=== PATIENT | female | born 1935 | race Caucasian/White ===

== ENCOUNTER 2017-11-21 14:00 | Outpatient (RCR) | payer MEDICARE, OTHER, SELFPAY | END 2017-11-21 23:59 | LOC: PT 14:00 | PROVIDERS: PCP Family Medicine; Visit Provider Family Medicine | DX: I89.0 Lymphedema, not elsewhere classified (principal) | CPT/HCPCS: G8987; G8988; G8989; 97140; 97162 ==

== ENCOUNTER 2017-11-22 19:40 | Outpatient (RCR) | payer MEDICARE, SELFPAY | END 2017-11-22 23:59 | LOC: PT 19:40 | PROVIDERS: Family Provider Family Medicine; PCP Family Medicine; Visit Provider Family Medicine | DX: I89.0 Lymphedema, not elsewhere classified (principal) ==

== ENCOUNTER 2017-12-01 16:36 | Emergency (ER) | payer MEDICARE, OTHER, SELFPAY ==
[2017-12-01 17:01] VITALS: BP 151/67; PULSE 89; RESP 20; TEMP 36.6; O2SAT 95; BMI 35.7
--- NOTE | 2017-12-01 17:52 | HMH.EDUTC ---
[facility] [place] Disposition Clinical Impression: Fracture of trapezium of left wrist Qualifiers: Encounter type: initial encounter Fracture type: closed Fracture alignment: nondisplaced Qualified Code(s): S62.175A - Nondisplaced fracture of trapezium [larger multangular], left wrist, initial encounter for closed fracture Disposition: Home, Self-Care Condition on Discharge: Good Instructions: DI for Wrist Fracture, How To Perform RICE (Rest, Ice, Compress, Elevate), How to Use a Sling, How to Take Care of Your Splint Additional Instructions: * Rest * ice 15-20 mins 3-4 times a day * splint for support and swelling until you see ortho or Dr. Steve. * Elevate as discussed as much as possible to help reduce swelling and therefore, pain * Tylenol and/or aleve for pain Referrals: Dominick Steve MD [Primary Care Provider] - (Call Sunday. Tell him you were in the [facility] Sunday, dx w/ trapzium fracture by Dr. Camarena. Radiologist final report wasn't available at discharge. Placed in orthoglass splint. Prefer not to see Dr. Kong. He and you can decide on someone to follow up with.) Time of Disposition: 19:43 Medical Decision Making Vital Signs: 12/01/17 17:01 Temperature 98 F Temperature Source Temporal Artery Scan Pulse Rate [Brachial] 89 Respiratory Rate 20 Blood Pressure [Right Arm] 151/67 Blood Pressure Mean [Right Arm] 95 Blood Pressure Source [Right Arm] Manual Cuff/ Doppler Blood Pressure Position [Right Arm] Sitting 02 Sat by Pulse Oximetry 95 Oxygen Delivery Method Room Air - Lab Data Lab Results 12/01/17 18:05: Sodium 134 L, Potassium 3.9, Chloride 98, Carbon Dioxide 28, Anion Gap 11.9, BUN 8, Creatinine 0.79, Estimated Creat Clear 62, Estimated GFR > 60, Est GFR ( Amer) > 60, Glucose 127 H, Uric Acid 4.2 Result diagrams: 12/01/17 18:05 Orders (Tests/Meds): ORDERS Category Date Time Status XR wrist LT min 3V Stat Exams 12/01/17 17:59 Taken - Radiology Data #1 Image(s): Wrist (left) Image Reviewed: Yes I reviewed the patient's radiology image, Yes I reviewed the patient's radiology image w/the ED provider trapezium fracture per Dr. Nicol Hughes Inquiry Pt receiving controlled substance: No [facility] [place] HPI - General Stated complaint: Swollen left hand, no accident Time Seen by Provider: 12/01/17 17:52 Mode of Arrival: Wheelchair Source of Information: Patient Limitations: No Limitations Description of Symptoms (Recalled from Triage Doc. by RN): LEFT HAND SWOLLEN WHEN PT WOKE UP HEENT Symptoms (Recalled from RN notes): No Resp Symptoms (Recalled from RN notes): No Skin Symptoms (Recalled from RN notes): No MS Symptoms (Recalled from RN notes): Yes (LEFT HAND) Functional Status (Recalled from RN notes): NA - History of Present Illness Provider Complaint: Here w/ daughter in law c/o left wrist pain and swelling. Woke up with it this morning. No pain last night when she went to bed. No known injury but I am always knocking it on things . Denies hx of gout. No fever, malaise. No improvement w/ aleve. radiating into FA and up into hand. Worse with movement of fingers, especially thumb - Related Data Home Medications Medication Instructions Recorded Confirmed Amlodipine Besylate [Norvasc 5mg 5 mg PO DAILY 12/01/17 12/01/17 tablet] Allergies Allergy/AdvReac Type Severity Reaction Status Date / Time Penicillins [PENICILLINS] Allergy Intermediate I-RASH Verified 12/01/17 17:08 Sulfa (Sulfonamide Allergy Unknown Verified 12/01/17 17:08 Antibiotics) [SULFA (SULFONAMIDE ANTIBIOTICS)] - Worker's Comp Is this a Worker's Comp case?: No [facility] History I have reviewed the patient's past medical history: Yes Medical History: Reports:: Hypertension Denies:: Diabetes Mellitus Type 1, Diabetes Mellitus Type 2 Other Medical History: Reports: Arthritis Laterality Cases: Left: Arthroscopy Hip Other Surgeries: Yes: Other (hip replacement) - *Social
--- NOTE | 2017-12-01 17:59 | ED_ITS ---
[facility] [place] Clinical Impression: Fracture of trapezium of left wrist Qualifiers: Encounter type: initial encounter Fracture type: closed Fracture alignment: nondisplaced Qualified Code(s): S62.175A - Nondisplaced fracture of trapezium [ larger multangular], left wrist, initial encounter for closed fracture Disposition: Home, Self-Care Condition on Discharge: Good Instructions: DI for Wrist Fracture, How To Perform RICE (Rest, Ice, Compress, Elevate), How to Use a Sling, How to Take Care of Your Splint Additional Instructions: * Rest * ice 15-20 mins 3-4 times a day * splint for support and swelling until you see ortho or Dr. Steve. * Elevate as discussed as much as possible to help reduce swelling and therefore , pain * Tylenol and/or aleve for pain Referrals: Dominick Steve MD [Primary Care Provider] - (Call Sunday. Tell him you were in the [facility] Sunday, dx w/ trapzium fracture by Dr. Camarena. Radiologist final report wasn't available at discharge. Placed in orthoglass splint. Prefer not to see Dr. Kong. He and you can decide on someone to follow up with.) Time of Disposition: 19:43 Medical Decision Making Vital Signs: 12/01/17 17:01 Temperature 98 F Temperature Source Temporal Artery Scan Pulse Rate [Brachial] 89 Respiratory Rate 20 Blood Pressure [Right Arm] 151/67 Blood Pressure Mean [Right Arm] 95 Blood Pressure Source [Right Arm] Manual Cuff/ Doppler Blood Pressure Position [Right Arm] Sitting 02 Sat by Pulse Oximetry 95 Oxygen Delivery Method Room Air - Lab Data Lab Results 12/01/17 18:05: Sodium 134 L, Potassium 3.9, Chloride 98, Carbon Dioxide 28, Anion Gap 11.9, BUN 8, Creatinine 0.79, Estimated Creat Clear 62, Estimated GFR > 60, Est GFR ( Amer) > 60, Glucose 127 H, Uric Acid 4.2 Result diagrams: 12/01/17 18:05 Orders (Tests/Meds): ORDERS Category Date Time Status XR wrist LT min 3V Stat Exams 12/01/17 17:59 Taken - Radiology Data #1 Image(s): Wrist (left) Image Reviewed: Yes I reviewed the patient's radiology image, Yes I reviewed the patient's radiology image w/the ED provider trapezium fracture per Dr. Nicol Hughes Inquiry Pt receiving controlled substance: No [facility] [place] - General Stated complaint: Swollen left hand, no accident Time Seen by Provider: 12/01/17 17:52 Mode of Arrival: Wheelchair Source of Information: Patient Limitations: No Limitations Description of Symptoms (Recalled from Triage Doc. by RN): LEFT HAND SWOLLEN WHEN PT WOKE UP HEENT Symptoms (Recalled from RN notes): No Resp Symptoms (Recalled from RN notes): No Skin Symptoms (Recalled from RN notes): No MS Symptoms (Recalled from RN notes): Yes (LEFT HAND) Functional Status (Recalled from RN notes): NA - History of Present Illness Provider Complaint: Here w/ daughter in law c/o left wrist pain and swelling. Woke up with it this morning. No pain last night when she went to bed. No known injury but I am always knocking it on things . Denies hx of gout. No fever, malaise. No improvement w/ aleve. radiating into FA and up into hand. Worse with movement of fingers, especially thumb - Related Data Home Medications Medication Instructions Recorded Confirmed Amlodipine Besylate [Norvasc 5mg 5 mg PO DAILY 12/01/17 12/01/17 tablet] Allergies Allergy/AdvReac Type Severity Reacti
--- NOTE | 2017-12-01 17:59 | XR_ITS ---
XR wrist LT min 3V HISTORY: Left wrist pain ITS.REASON: woke up this morning w/ left wrist swollen/painful ORDERING PHYSICIAN: Radha Tyson PATIENT AGE: 82 years COMPARISON: None FINDINGS: No fracture or dislocation. No lytic or blastic change. There is normal mineralization.. There are mild osteoarthritic changes of the scaphotrapezium joint. There is generalized osteopenia.. There is some cortical irregularity involving the base of the ulnar styloid process of age indeterminate probably nonacute. There is some minimal chondrocalcinosis of the triangular fibrocartilage. IMPRESSION: 1. No definite acute fracture. 2. Osteoarthritic change of the scaphotrapezium joint. 3. If there is suspicion for fracture then CT of the wrist is recommended for further evaluation.
[2017-12-01 18:30] LABS: Anion Gap 11.9 mEq/L (5-15); Blood Urea Nitrogen 8 mg/dL (7-18); Carbon Dioxide 28 mmol/L (21.0-32.0); Chloride 98 mmol/L (98-107); Creatinine Clearance Estimated 62 mL/min (0-300); Creatinine,Serum 0.79 mg/dL (0.55-1.02); Estimated Glomerular Filt Rate > 60 ml/min (>60); GFR (African American) > 60 ML/MIN (>60); Glucose 127 mg/dL (74-106); Potassium 3.9 mmoL/L (3.5-5.1); Sodium 134 mmol/L (136-145); Uric Acid 4.2 mg/dL (2.6-7.2)
== END 2017-12-01 19:48 | disposition home or self-care (01) ==
PROVIDERS: Emergency Provider Nurse Practitioner Family; Family Provider Family Medicine; PCP Family Medicine
DX: S62.175A Nondisplaced fracture of trapezium [larger multangular], left wrist, initial encounter for closed fracture (principal); X58.XXXA Exposure to other specified factors, initial encounter; I10 Essential (primary) hypertension; Z79.899 Other long term (current) drug therapy
CPT/HCPCS: 36415; 73110; 80048; 84550; 99202

== ENCOUNTER 2018-01-05 12:31 | Emergency (ER) | payer MEDICARE, OTHER, SELFPAY ==
[2018-01-05 12:41] VITALS: BP 149/70; PULSE 80; RESP 18; TEMP 36.9; O2SAT 97; BMI 29.5
--- NOTE | 2018-01-05 13:28 | HMH.EDUROGF ---
ED Disposition Clinical Impression: Abnormal vaginal bleeding, Uterine prolapse, Coagulopathy Clinical Impression: (Ruled Out): Hemorrhoids Disposition: Home, Self-Care Condition on Discharge: Fair Instructions: DI for Gastrointestinal Bleeding Additional Instructions: I discussed with the patient and her [id number] that the origin of the bleeding is most likely the anterior vaginal wall secondary to her third-degree prolapse. We discussed the following discharge plan. She verbalized understanding. 1- stop the aspirin. 2- observe for more than 5 pads of vaginal bleeding to return, if she becomes weak or dizzy she will need to return. 3- see Dr Loyd for treatment of prolapse and cancer screening. Referrals: Dominick Steve MD [Primary Care Provider] - - Critical Care Critical Care Time: No Attestation: On 01/05/18, the high probability of a clinically significant, sudden or life threatening deterioration of the following system(s) required my full and direct attention, intervention and personal management. The time I documented below is in addition to time spent performing reported procedures but includes the following listed in this critical care notation. Medical Decision Making - Medical Records Medical records reviewed: Yes: I reviewed the patient's medical records. Vital Signs: 01/05/18 12:41 01/05/18 13:35 01/05/18 13:36 Temperature 98.5 F Temperature Source Oral Pulse Rate [Orthostatic Lying Right Brachial] 103 H Pulse Rate [Orthostatic Sitting Right Brachial] 94 H Pulse Rate [Orthostatic Standing Right Brachial] Pulse Rate [Right Brachial] 80 Respiratory Rate 18 Blood Pressure [Orthostatic Lying Right Arm] 163/73 Blood Pressure [Orthostatic Sitting Right Arm] 166/93 Blood Pressure [Orthostatic Standing Right Arm] Blood Pressure [Right Arm] 149/70 Blood Pressure Mean [Right Arm] 96 Blood Pressure Source [Right Arm] Automatic Cuff Blood Pressure Position [Right Arm] Sitting 02 Sat by Pulse Oximetry 97 Oxygen Delivery Method Room Air 01/05/18 13:37 Temperature Temperature Source Pulse Rate [Orthostatic Lying Right Brachial] Pulse Rate [Orthostatic Sitting Right Brachial] Pulse Rate [Orthostatic Standing Right Brachial] 99 H Pulse Rate [Right Brachial] Respiratory Rate Blood Pressure [Orthostatic Lying Right Arm] Blood Pressure [Orthostatic Sitting Right Arm] Blood Pressure [Orthostatic Standing Right Arm] 168/67 Blood Pressure [Right Arm] Blood Pressure Mean [Right Arm] Blood Pressure Source [Right Arm] Blood Pressure Position [Right Arm] 02 Sat by Pulse Oximetry Oxygen Delivery Method - Lab Data Lab Results 01/05/18 13:28: Stool Occult Blood Negative 01/05/18 13:40: WBC 8.5, RBC 4.52, Hgb 13.5, Hct 41.1, MCV 90.9, MCH 30.0, MCHC 33.0, RDW 13.4, Plt Count 289, MPV 7.3 L, Neut % (Auto) 74.4, Lymph % (Auto) 21.1, [place] % (Auto) 4.2, Eos % (Auto) 0.2, Baso % (Auto) 0.1, Neut # (Auto) 6.4, Lymph # (Auto) 1.8, [place] # (Auto) 0.4, Eos # (Auto) 0.0, Baso # (Auto) 0.0 01/05/18 13:40: PT 10.6, INR 0.98, APTT 27.5 01/05/18 13:40: Sodium 143, Potassium 3.9, Chloride 107, Carbon Dioxide 28, Anion Gap 11.9, BUN 13, Creatinine 0.78, Estimated Creat Clear 49, Estimated GFR 71, Est GFR ( Amer) 85, Glucose 116 H, Calcium 9.5, Total Bilirubin 0.4, AST 24, ALT 24, Alkaline Phosphatase 91, Total Protein 7.6, Albumin 3.7, Globulin 3.9 H, Albumin/Globulin Ratio 0.9 L Result diagrams: 01/05/18 13:40 01/05/18 13:40 - Saul Inquiry Pt receiving controlled substance: No Saul was queried for this patient: No Medical Decision Making Narrative: The labs were within normal limits and Hemoccult was negative. I discussed the labs with the patient and her [id number]. Vision of the bleeding seems to be the anterior vaginal wall due to her third-degree prolapse. Advised to stop the aspirin see Dr. Trotter for a pessary. she lonny
--- NOTE | 2018-01-05 13:32 | ED_ITS ---
ED Disposition Clinical Impression: Abnormal vaginal bleeding, Uterine prolapse, Coagulopathy Clinical Impression: (Ruled Out): Hemorrhoids Disposition: Home, Self-Care Condition on Discharge: Fair Instructions: DI for Gastrointestinal Bleeding Additional Instructions: I discussed with the patient and her [id number] that the origin of the bleeding is most likely the anterior vaginal wall secondary to her third-degree prolapse. We discussed the following discharge plan. She verbalized understanding. 1- stop the aspirin. 2- observe for more than 5 pads of vaginal bleeding to return, if she becomes weak or dizzy she will need to return. 3- see Dr Loyd for treatment of prolapse and cancer screening. Referrals: Dominick Steve MD [Primary Care Provider] - - Critical Care Critical Care Time: No Attestation: On 01/05/18, the high probability of a clinically significant, sudden or life threatening deterioration of the following system(s) required my full and direct attention, intervention and personal management. The time I documented below is in addition to time spent performing reported procedures but includes the following listed in this critical care notation. Medical Decision Making - Medical Records Medical records reviewed: Yes: I reviewed the patient's medical records. Vital Signs: 01/05/18 12:41 01/05/18 13:35 01/05/18 13:36 Temperature 98.5 F Temperature Source Oral Pulse Rate [Orthostatic Lying Right Brachial] 103 H Pulse Rate [Orthostatic Sitting Right Brachial] 94 H Pulse Rate [Orthostatic Standing Right Brachial] Pulse Rate [Right Brachial] 80 Respiratory Rate 18 Blood Pressure [Orthostatic Lying Right Arm] 163/73 Blood Pressure [Orthostatic Sitting Right Arm] 166/93 Blood Pressure [Orthostatic Standing Right Arm] Blood Pressure [Right Arm] 149/70 Blood Pressure Mean [Right Arm] 96 Blood Pressure Source [Right Arm] Automatic Cuff Blood Pressure Position [Right Arm] Sitting 02 Sat by Pulse Oximetry 97 Oxygen Delivery Method Room Air 01/05/18 13:37 Temperature Temperature Source Pulse Rate [Orthostatic Lying Right Brachial] Pulse Rate [Orthostatic Sitting Right Brachial] Pulse Rate [Orthostatic Standing Right Brachial] 99 H Pulse Rate [Right Brachial] Respiratory Rate Blood Pressure [Orthostatic Lying Right Arm] Blood Pressure [Orthostatic Sitting Right Arm] Blood Pressure [Orthostatic Standing Right Arm] 168/67 Blood Pressure [Right Arm] Blood Pressure Mean [Right Arm] Blood Pressure Source [Right Arm] Blood Pressure Position [Right Arm] 02 Sat by Pulse Oximetry Oxygen Delivery Method - Lab Data Lab Results 01/05/18 13:28: Stool Occult Blood Negative 01/05/18 13:40: WBC 8.5, RBC 4.52, Hgb 13.5, Hct 41.1, MCV 90.9, MCH 30.0, MCHC 33.0, RDW 13.4, Plt Count 289, MPV 7.3 L, Neut % (Auto) 74.4, Lymph % (Auto) 21.1, [place] % (Auto) 4.2, Eos % (Auto) 0.2, Baso % (Auto) 0.1, Neut # (Auto) 6.4 , Lymph # (Auto) 1.8, [place] # (Auto) 0.4, Eos # (Auto) 0.0, Baso # (Auto) 0.0 01/05/18 13:40: PT 10.6, INR 0.98, APTT 27.5 01/05/18 13:40: Sodium 143, Potassium 3.9, Chloride 107, Carbon Dioxide 28, Anion Gap 11.9, BUN 13, Creatinine 0.78, Estimated Creat Clear 49, Estimated GFR 71, Est GFR ( Amer) 85, Glucose
[2018-01-05 13:35] VITALS: BP 163/73; PULSE 103
[2018-01-05 13:36] VITALS: BP 166/93; PULSE 94
[2018-01-05 13:37] VITALS: BP 168/67; PULSE 99
[2018-01-05 13:49] LABS: Occult Blood,Stool Negative (Negative)
[2018-01-05 13:53] LABS: Basophils % 0.1 % (0.1-2.0); Eosinophils % 0.2 % (0.1-12.0); Hematocrit 41.1 % (37.0-47.0); Hemoglobin 13.5 g/dL (12.2-16.2); Lymphocytes # 1.8 K/mm3 (0.7-4.5); Lymphocytes % 21.1 K/mm3 (10-50); Mean Corpuscular Volume 90.9 fl (81-99); Mean Platelet Volume 7.3 fl (7.4-10.4); Monocytes # 0.4 K/mm3 (0.1-1.0); Monocytes % 4.2 % (1.7-9.3); Neutrophils # 6.4 K/mm3 (1.8-7.8); Neutrophils % 74.4 % (37.0-80.0); Platelet Count 289 K/mm3 (142-424); Red Blood Count 4.52 M/mm3 (4.20-5.40); Red Cell Distribution Width 13.4 % (11.5-17.5); White Blood Count 8.5 K/mm3 (4.8-10.8)
[2018-01-05 13:58] LABS: Activated Partial Thrombo Time 27.5 seconds (23.6-34.0); INR 0.98 (0.9-1.1); Prothrombin Time 10.6 seconds (9.4-11.8)
[2018-01-05 14:03] LABS: Alanine Aminotransferase 24 U/L (12-78); Albumin Level 3.7 gm/dL (3.4-5.0); Albumin/Globulin Ratio 0.9 (1.1-1.8); Alkaline Phosphatase 91 U/L (46-116); Anion Gap 11.9 mEq/L (5-15); Aspartate Amino Transferase 24 U/L (15-37); Bilirubin,Total 0.4 mg/dL (0.2-1.0); Blood Urea Nitrogen 13 mg/dL (7-18); Calcium 9.5 mg/dL (8.5-10.1); Carbon Dioxide 28 mmol/L (21.0-32.0); Chloride 107 mmol/L (98-107); Creatinine Clearance Estimated 49 mL/min (0-300); Creatinine,Serum 0.78 mg/dL (0.55-1.02); Estimated Glomerular Filt Rate 71 ml/min (>60); GFR (African American) 85 ML/MIN (>60); Globulin 3.9 gm/dl (1.3-3.2); Glucose 116 mg/dL (74-106); Potassium 3.9 mmoL/L (3.5-5.1); Sodium 143 mmol/L (136-145); Total Protein,Serum 7.6 gm/dL (6.4-8.2)
[2018-01-05 14:29] VITALS: BP 144/68; PULSE 80; RESP 20; TEMP 36.8; O2SAT 98
== END 2018-01-05 14:29 | disposition home or self-care (01) ==
PROVIDERS: Emergency Provider Emergency Medicine; Family Provider Family Medicine; PCP Family Medicine
DX: N93.9 Abnormal uterine and vaginal bleeding, unspecified (principal); N81.4 Uterovaginal prolapse, unspecified; D68.9 Coagulation defect, unspecified; I10 Essential (primary) hypertension; Z88.0 Allergy status to penicillin; Z88.2 Allergy status to sulfonamides; Z96.642 Presence of left artificial hip joint
CPT/HCPCS: 80053; 82272; 85025; 85610; 85730; 99284; G0328

== ENCOUNTER → 2018-01-11 14:54 | Outpatient (CLI) | payer MEDICARE, OTHER, SELFPAY ==
--- NOTE | 2018-01-11 15:01 | CT_ITS ---
CT wrist LT wo con HISTORY: Left wrist pain ITS.REASON: LEFT WRIST PAIN ORDERING PHYSICIAN: Dominick Steve MD PATIENT AGE: 82 years COMPARISON: None FINDINGS: There is diffuse osteopenia. The patient was not able to be positioned optimally nasopharyngeal was not able to be in the isocenter without other body parts. No obvious fracture or bony destructive process evident. No fracture or dislocation IMPRESSION: Limited exam. No obvious fracture
== END ==
PROVIDERS: Family Provider Family Medicine; PCP Family Medicine; Visit Provider Family Medicine
DX: M25.532 Pain in left wrist (principal)
CPT/HCPCS: 73200

== ENCOUNTER 2018-01-17 08:48 | Outpatient (RCR) | payer MEDICARE, OTHER, SELFPAY ==
--- NOTE | 2018-01-17 10:10 | HMH.PTOPEV ---
Rehab Outpatient Evaluation Rehab OP Evaluation Start: 01/17/18 09:56 Freq: Status: Active Protocol: Document 01/17/18 09:57 RMMARILUL (Rec: 01/17/18 10:10 RMARSHALL [id number]) Electronically Signed By Jovanny Aguilar OT 01/17/18 09:57 Outpatient Therapy Subjective History Subjective History Pt is an 82 year old female who is seen this date for initial evaluation to left wrist. Pt reports ~ 3 weeks ago she woke up one morning with pain in her left wrist. Pt does not recall a specific injury to left wrist that would have caused the pain. Pt claims her pain has interrupted her normal everyday routines. Pt does demonstrate with slight decreased AROM/Strength at left wrist. Pt is right hand dominant. Pt's celery stripper strength was also declined slightly at left hand. Pt will continue to be seen in order to address these deficits. Chief Complaint Pain Stiff Decreased Structural Steel Fitter Strength Symptom Type Ache Throb Sharp Symptoms Relieved By Nothing Symptoms Aggravated By Physical Activity Twisting Lifting Prior Functional Limitations None Current Functional Limitations Reaching Lifting Housework Dressing Symptom Description Intermittent Activity Dependent Level of pain today (0-10) 2 Pain scale - at its best (0-10) 1 Pain scale - at its worst (0-10) 8 Wrist/Hand Eval Wrist Range of Motion Wrist Limitations of Range of Motion Soft Tissue Tightness Pain Wrist Extension Active Range of Motion ( 58 degrees) Wrist Flexion Active Range of Motion ( 40 degrees) Wrist Radial Deviation Active Range of 18 Motion (degrees) Wrist Ulnar Deviation Active Range of 18 Motion (degrees) Wrist Manual Muscle Testing Right Wrist Strength Reason Not Measured WFL Left Wrist Extension Strength Grade 4- Good- Wrist Flexion Strength
== END 2018-01-17 08:49 | disposition home or self-care (01) ==
LOC: OT 08:48
PROVIDERS: Family Provider Family Medicine; PCP Family Medicine; Visit Provider Family Medicine
DX: M25.532 Pain in left wrist (principal)
CPT/HCPCS: 97035; 97140; 97165

== ENCOUNTER 2018-06-25 10:00 | Outpatient (RCR) | payer MEDICARE, OTHER, SELFPAY ==
--- NOTE | 2018-04-26 10:40 | HMH.PTOPWND ---
Rehab Outpt Wound Evaluation Rehab OP Wound Evaluation Start: 04/26/18 10:10 Freq: Status: Active Protocol: Document 04/26/18 10:35 LUIS (Rec: 04/26/18 10:40 PHOMARCIO [id number]) Electronically Signed By Ismael Newman, PT 04/26/18 10:35 Subjective/History History History Pt is 82 yof who presents with iron LE edema off and on for at least 5 years. She is well known to this clinic and follows her home instructions very well with assistance from he , but is currently having an exacerbation of her edema. She reports PMH of minimal HTN and OA, and no current c/o pain. Lymphedema Eval Classification of Lymphedema Secondary Lymphedema Yes Stemmer's sign Stemmer's Sign no Stage of Lymphedema Lymphedema stages Stage II (Pitting edema, increased fibrosis w/ decreased pitting) Skin Changes Dry Skin Yes Affected Extremities Areas Affected by Lymphedema/Edema Right Lower Extremity Left Lower Extremity Manual Lymphatic Drainage Treatment Area MLD Treatment Area Right Lower Extremity Left Lower Extremity Wound Problems/Impairments Impairments Problems/Impairmments Palpation Tenderness Impaired Endurance Impaired Walking Increased Edema Lymphedema Present Impaired Self Care/Self Management Prognosis Rehab Potential Good Clinical Impression Consistent with Diagnosis Yes Short Term Goals Number of Weeks 4 Decreased Palpation Tenderness Yes: to min Patient to Understand Lymphedema Yes Treatment and Exercises Decrease Girth Measurments by (cm) Yes: by 5 cm Long-Term Goals Number of Weeks 8 Decreased Palpation Tenderness Yes: to none Patient to be Ind w/ HEP Yes Patient to Adhere Lymphedema Precautions Yes Decrease Girth Measurments by (cm) Yes: by 20 cm Outpatient Therapy Plan of Care Treatment Plan May Include Therapeutic Exercise Including Home Yes Exercise Program Manual Therapy Techniques Yes Neuromuscular Re-education Yes Orthotics/Bracing/Splinting Yes Massage Yes Manual Lymphatic Drainage Yes Eval/Re-Eval Yes Frequency Times per week
== END 2018-06-25 10:01 | disposition home or self-care (01) ==
LOC: PT 10:00
PROVIDERS: Family Provider Family Medicine; PCP Family Medicine; Visit Provider Family Medicine
DX: I89.0 Lymphedema, not elsewhere classified (principal)
CPT/HCPCS: 97140; 97162; 97760

== ENCOUNTER 2018-12-05 08:00 | Outpatient (RCR) | payer MEDICARE, OTHER, SELFPAY ==
--- NOTE | 2018-11-21 08:59 | HMH.PTOPWND ---
Rehab Outpt Wound Evaluation Rehab OP Wound Evaluation Start: 11/21/18 08:46 Freq: Status: Active Protocol: Document 11/21/18 08:47 LUIS (Rec: 11/21/18 08:59 PHORNE [id number]) Electronically Signed By Ismael Newman, PT 11/21/18 08:47 Subjective/History History History Pt is 83 yowf who presents with c/o increased iron LE edema x ~ 1-2 mos. She has hx of chronic iron LE edema x ~ 5- 6 yrs with insidious onset. 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 She has hx of mild HTN. Lymphedema Eval Classification of Lymphedema Secondary Lymphedema Yes Stemmer's sign Stemmer's Sign no Stage of Lymphedema Lymphedema stages Stage I (Pitting edema, reduces w/ elevation, no fibrosis) Skin Changes Dry Skin Yes Affected Extremities Areas Affected by Lymphedema/Edema Right Lower Extremity Left Lower Extremity Manual Lymphatic Drainage Treatment Area MLD Treatment Area Right Lower Extremity Left Lower Extremity Wound Problems/Impairments Impairments Problems/Impairmments Palpation Tenderness Impaired Walking Increased Edema Lymphedema Present Subjective C/O Pain Impaired Self Care/Self Management Prognosis Rehab Potential Good Clinical Impression Consistent with Diagnosis Yes Short Term Goals Number of Weeks 4 Decreased Palpation Tenderness Yes: to min Patient to Understand Lymphedema Yes Treatment and Exercises Decrease Girth Measurments by (cm) Yes: by 3 cm Retirement Goals Number of Weeks 8 Decreased Palpation Tenderness Yes: to none Patient to be Ind w/ HEP Yes Patient to Adhere Lymphedema Precautions Yes Decrease Girth Measurments by (cm) Yes: by 10 cm Outpatient Therapy Plan of Care Treatment Plan May Include Therapeutic Exercise Including Home Yes Exercise Program Manual Therapy Techniques Yes Neuromuscular Re-education Yes Orthotics/Bracing/Splinting Yes Massage Yes Manual Lymphatic Drainage Yes Eval/Re-Eval Yes Frequency Times per week 2 Duration Number of Weeks 8 Addendums This patient is a candidate for social Yes or vocational rehab? Patient/Guardian ve
== END 2018-12-05 08:05 | disposition home or self-care (01) ==
LOC: PT 08:00
PROVIDERS: Visit Provider Family Medicine
DX: I89.0 Lymphedema, not elsewhere classified (principal)
CPT/HCPCS: 97140; 97162

== ENCOUNTER 2020-01-21 09:00 | Outpatient (RCR) | payer MEDICARE, OTHER, SELFPAY ==
--- NOTE | 2019-12-31 10:37 | HMH.PTOPWND ---
Rehab Outpt Wound Evaluation Rehab OP Wound Evaluation Start: 12/31/19 09:57 Freq: Status: Active Protocol: Document 12/31/19 10:27 LUIS (Rec: 12/31/19 10:37 PHOMARCIO [id number]) Electronically Signed By Ismael Newman, PT 12/31/19 10:27 Subjective/History History History Pt is 84 yowf who presents with c/o B LE edema x several years, gradually worsening, R slightly worse than L. She reports significant tenderness to palpation throughout B LE gaitor area. She reports pain in B knees due to OA. She reports no significant PMH otherwise except L unipolar hip replacement. Subjective Subjective Pain in B knees 8/10 at worst. Lymphedema Eval Classification of Lymphedema Secondary Lymphedema Yes Stemmer's sign Stemmer's Sign no Stage of Lymphedema Lymphedema stages Stage II (Pitting edema, increased fibrosis w/ decreased pitting) Skin Changes Dry Skin Yes Skin Folds Yes Other Changes Yes Pain Scale Pain Scale (0-10) 8 Affected Extremities Areas Affected by Lymphedema/Edema Right Lower Extremity,Left Lower Extremity Manual Lymphatic Drainage Treatment Area MLD Treatment Area Right Lower Extremity,Left Lower Extremity Wound Problems/Impairments Impairments Problems/Impairmments Palpation Tenderness,Impaired Walking,Increased Edema, Lymphedema Present,Subjective C/O Pain,Impaired Self Care/ Self Management Prognosis Rehab Potential Good Clinical Impression Consistent with Diagnosis Yes Short Term Goals Number of Weeks 4 Decreased Palpation Tenderness Yes: to min Decrease Subjective C/O Pain Yes: 05/05 Patient to be Ind w/ Donning/Braymer Yes Compression Garments Patient to Understand Lymphedema Yes Treatment and Exercises Decrease Girth Measurments by (cm) Yes: by 10 cm Finisher Polisher Goals Number of Weeks 8 Decreased Palpation Tenderness Yes: to none Decrease Subjective C/O Pain Yes: / Patient to be Ind w/ HEP Yes Patient to Adhere Lymphedema Precautions Yes Decrease Girth Measurments by (cm) Yes: by 25 cm Outpatient Therapy Plan of Care Treatment Plan May Include Therapeutic Exercise Including Home Yes Exercise Pr
== END 2020-01-21 10:00 | disposition home or self-care (01) ==
LOC: PT 09:00
PROVIDERS: PCP Family Medicine; Visit Provider Family Medicine
DX: I89.0 Lymphedema, not elsewhere classified (principal)
CPT/HCPCS: 97140; 97162; 97760

== ENCOUNTER 2020-12-14 09:00 | Outpatient (RCR) | payer MEDICARE, OTHER, SELFPAY ==
--- NOTE | 2020-10-05 10:25 | HMH.PTOPWND ---
Rehab Outpt Wound Evaluation Rehab OP Wound Evaluation Start: 10/05/20 10:16 Freq: Status: Active Protocol: Document 10/05/20 10:17 LUIS (Rec: 10/05/20 10:25 PHOMARCIO [id number]) Electronically Signed By Ismael Newman, PT 10/05/20 10:17 Subjective/History History History Pt is 84 yowf who presents with c/o continued B LE edema for many years, worse x ~ 6 mos this episode. She is well known to our clinic and has responded well to lymphedema treatment in the past. She reports no c/o pain currently, but does have some tenderness to palpation. She reports increased heavy feeling in B LE and intermittent numb/ tingling feeling in the R LE. She has PMH of HTN. Subjective Subjective 2/4 tenderness to palpation in B gaitor area of lower legs. Lymphedema Eval Classification of Lymphedema Secondary Lymphedema Yes Stemmer's sign Stemmer's Sign yes Stage of Lymphedema Lymphedema stages Stage II (Pitting edema, increased fibrosis w/ decreased pitting) Skin Changes Dry Skin Yes Skin Folds Yes Redness Yes Brittle Uneven Nails Yes Other Changes Yes Pain Scale Pain Scale (0-10) 0 Affected Extremities Areas Affected by Lymphedema/Edema Right Lower Extremity,Left Lower Extremity Manual Lymphatic Drainage Treatment Area MLD Treatment Area Right Lower Extremity,Left Lower Extremity Wound Problems/Impairments Impairments Problems/Impairmments Palpation Tenderness,Impaired Strength,Impaired Endurance, Impaired Gait Pattern,Impaired Walking,Impaired Recreational Activities,Increased Edema, Lymphedema Present,Subjective C/O Pain,Impaired Self Care/ Self Management Prognosis Rehab Potential Good Clinical Impression Consistent with Diagnosis Yes Short Term Goals Number of Weeks 4 Decreased Palpation Tenderness Yes: 1/4 B LE Decrease Edema Yes Patient to Understand Lymphedema Yes Treatment and Exercises Decre
--- NOTE | 2020-11-02 10:54 | HMH.RHREAS ---
Rehab Reassessment Rehab OP Re-assessment Start: 11/02/20 10:49 Freq: Status: Active Protocol: Document 11/02/20 10:50 LUIS (Rec: 11/02/20 10:54 LUIS [id number]) Electronically Signed By Ismael Newman, PT 11/02/20 10:50 Rehab Re-assessment Subjective Subjective Pt reports less pain and tenderness overall. Objective Objective Notes Circumferential measurements: R LE -11.5 cm since IE L LE - 12.4 cm since IE. TTP: 1/4 throughout B lower leg. Assessment Progress Assessment Progressing as Expected Assessment Notes Pt with decreased edema overall, pitting remains however. Patient goals met ST,2,3,4 Goals Not Met LT,2,3,4,5,6 Revised Goals none Plan Plan Continue per initial POC. Frequency of Therapy 2 x/wk Duration of therapy 8 wks Time and Billing Re-Eval Time 15 Re-Eval Billing Units 1 PHYSICIAN CERTIFICATION: I certify the specified therapy services for Ratna Rahman are required, authorized, and reviewed every 30 days.
== END 2020-12-14 09:05 | disposition home or self-care (01) ==
LOC: PT 09:00
PROVIDERS: PCP Family Medicine; Visit Provider Family Medicine
DX: I89.0 Lymphedema, not elsewhere classified (principal)
CPT/HCPCS: 97140; 97162; 97164; 97760

== ENCOUNTER 2021-06-08 20:06 | Observation (INO) | payer MEDICARE, OTHER, SELFPAY ==
[2021-06-08] VITALS (8 sets, daily range): BP systolic 166–193; BP diastolic 63–74; PULSE 80–102; RESP 18–19; TEMP 36.8–36.9; O2SAT 95–99; BMI 40.4; BMI 29.0
--- NOTE | 2021-06-08 20:15 | PC.NURSE ---
assisted patient to from car
--- NOTE | 2021-06-08 20:28 | XR_ITS ---
PROCEDURE INFORMATION: Exam: XR Pelvis Exam date and time: 06/08/2021 8:28 PM Age: 85 years old Clinical indication: Pelvic pain; Prior surgery; Surgery date: 6+ months; Surgery type: Left hip; Patient HX: Bilateral lower leg pain and pedal edema difficulty standing; Additional info: Ble pain, difficulty standing TECHNIQUE: Imaging protocol: XR pelvis. Views: 1 or 2 view. COMPARISON: No relevant prior studies available. FINDINGS: Bones/joints: Left hip replacement noted. No complicating features. No malalignment. No fractures. Soft tissues: Unremarkable. IMPRESSION: No acute findings.
--- NOTE | 2021-06-08 20:30 | XR_ITS ---
PROCEDURE INFORMATION: Exam: XR Chest Exam date and time: 06/08/2021 8:30 PM Age: 85 years old Clinical indication: Other: Not specified, bilateral lower leg pedal edema; Patient HX: Pain and pedal edema; Additional info: Unexplained incr in pain TECHNIQUE: Imaging protocol: XR of the chest. Views: 1 view. COMPARISON: No relevant prior studies available. FINDINGS: Lungs: Unremarkable. No consolidation. Pleural spaces: Unremarkable. No pleural effusion. No pneumothorax. Heart/Mediastinum: Unremarkable. No cardiomegaly. Bones/joints: Unremarkable. IMPRESSION: No acute findings.
--- NOTE | 2021-06-08 20:56 | ECG_ITS ---
APPROVED REPORT Exam: Resting ECG HR:100 bpm ECG Measurements Heart Rate 100 AXES VT 234 P 74 QRSd 88 QRS 76 QT 362 T 23 QTc 466 Conclusion Sinus rhythm with 1st degree AV block with premature supraventricular complexes Nonspecific ST abnormality Abnormal ECG Electronically signed by : Donovan Arnold, 06/09/2021 21:33:49
[2021-06-08 21:16] LABS: Alanine Aminotransferase 25 U/L (12-78); Albumin Level 4.4 g/dl (3.5-5.0); Albumin/Globulin Ratio 1.3 (1.1-1.8); Alkaline Phosphatase 104 U/L (38-126); Anion Gap 14.8 mEq/L (5-15); Aspartate Amino Transferase 41 U/L (14-36); Blood Urea Nitrogen 11 mg/dl (7-17); Calcium 9.3 mg/dl (8.4-10.2); Carbon Dioxide 26 mmol/L (22.0-30.0); Chloride 101 mmol/L (98-107); Creatinine Clearance Estimated 66 mL/min (50-200); Estimated Glomerular Filt Rate 68 ml/min (>60); GFR (African American) 82 ML/MIN (>60); Globulin 3.4 g/dL (1.3-3.2); Glucose 132 mg/dl (74-100); Potassium 3.8 mmoL/L (3.5-5.1); Sodium 138 mmol/L (136-145); Total Protein,Serum 7.8 g/dl (6.3-8.2)
--- NOTE | 2021-06-08 21:16 | HMH.EDGENADL ---
ED Disposition Clinical Impression: CHF (congestive heart failure) Qualifiers: Heart failure type: unspecified Heart failure chronicity: unspecified Qualified Code(s): I50.9 - Heart failure, unspecified DJD (degenerative joint disease) of knee Qualifiers: Osteoarthritis type: primary Laterality: bilateral Qualified Code(s): M17.0 - Bilateral primary osteoarthritis of knee Disposition: Admitted as Observation Condition on Discharge: Good Referrals: Dominick Steve MD [Primary Care Provider] - - Critical Care Critical Care Time: No Attestation: On 06/08/21, the high probability of a clinically significant, sudden or life threatening deterioration of the following system(s) required my full and direct attention, intervention and personal management. The time I documented below is in addition to time spent performing reported procedures but includes the following listed in this critical care notation. Medical Decision Making - Medical Records Medical records reviewed: Yes: I reviewed the patient's medical records. - Saul Inquiry Pt receiving controlled substance: No Vital Signs: 06/08/21 20:16 06/08/21 21:05 06/08/21 21:23 Temperature 98.3 F Temperature Source Oral Pulse Rate 95 H 96 H Pulse Rate [Right Brachial] 102 H Respiratory Rate 18 18 Blood Pressure 178/71 H 193/67 H Blood Pressure [Right Arm] 185/74 H Blood Pressure Mean 86 Blood Pressure Mean [Right Arm] 111 Blood Pressure Source Automatic Cuff Blood Pressure Source [Right Arm] Automatic Cuff Blood Pressure Position Sitting Blood Pressure Position [Right Arm] Sitting 02 Sat by Pulse Oximetry 98 98 97 Oxygen Delivery Method Room Air 06/08/21 21:30 06/08/21 22:00 06/08/21 22:30 Temperature Temperature Source Pulse Rate 95 H 94 H 101 H Pulse Rate [Right Brachial] Respiratory Rate Blood Pressure 183/64 H 181/65 H 166/63 H Blood Pressure [Right Arm] Blood Pressure Mean 77 103 97 Blood Pressure Mean [Right Arm] Blood Pressure Source Blood Pressure Source [Right Arm] Blood Pressure Position Blood Pressure Position [Right Arm] 02 Sat by Pulse Oximetry 97 96 95 Oxygen Delivery Method 06/08/21 22:32 Temperature Temperature Source Pulse Rate 85 Pulse Rate [Right Brachial] Respiratory Rate 19 Blood Pressure 166/63 H Blood Pressure [Right Arm] Blood Pressure Mean Blood Pressure Mean [Right Arm] Blood Pressure Source Automatic Cuff Blood Pressure Source [Right Arm] Blood Pressure Position Sitting Blood Pressure Position [Right Arm] 02 Sat by Pulse Oximetry 98 Oxygen Delivery Method - Lab Data Lab results reviewed: Yes: I reviewed the patient's lab results. Lab Results 06/08/21 20:40: WBC 10.6, RBC 4.61, Hgb 13.3, Hct 40.7, MCV 88.2, MCH 28.9, MCHC 32.7, RDW 13.4, Plt Count 367, MPV 8.0, Neut % (Auto) 65.8, Lymph % (Auto) 26.8, [place] % (Auto) 6.8, Eos % (Auto) 0.2, Baso % (Auto) 0.5, Neut # (Auto) 7.0, Lymph # (Auto) 2.9, [place] # (Auto) 0.7, Eos # (Auto) 0.0, Baso # (Auto) 0.1, ESR 28 06/08/21 20:40: Sodium 138, Potassium 3.8, Chloride 101, Carbon Dioxide 26, Anion Gap 14.8, BUN 11, Creatinine 0.80, Estimated Creat Clear 66, Estimated GFR 68, Est GFR ( Amer) 82, Glucose 132 H, Calcium 9.3, Total Bilirubin 1.0, AST 41 H, ALT 25, Alkaline Phosphatase 104, C-Reactive Protein 108.1 H, Total Protein 7.8, Albumin 4.4, Globulin 3.4 H, Albumin/Globulin Ratio 1.3, Procalcitonin 0.137 06/08/21 20:40: Uric Acid 5.5, Troponin I < 0.01 06/08/21 20:40: NT-Pro-B Natriuret Pep 1670 H, TSH 3.10, Thyroxine (T4) 12.8 H 06/08/21 21:10: Urine Color Dk yellow, Urine Appearance Clear, Urine pH 6.0, Ur Specific [place] >= 1.030, Urine Protein 3+, Urine Glucose (UA) Negative, Urine Ketones 2+, Urine Blood 3+, Urine Nitrate Negative, Urine Bilirubin 1+ A, Urine Urobilinogen 1.0, Ur Leukocyte Esterase Negative, Urine RBC 5-10, Urine WBC 3-5, Ur Squamous Epith Cells Occasional, Urine Bacteria 1+
[2021-06-08 21:17] LABS: Basophils # 0.1 K/mm3 (0-0.2); Basophils % 0.5 % (0.1-2.0); Eosinophils % 0.2 % (0.1-12.0); Hematocrit 40.7 % (37.0-47.0); Hemoglobin 13.3 g/dL (12.2-16.2); Lymphocytes # 2.9 K/mm3 (0.7-4.5); Lymphocytes % 26.8 % (10-50); Mean Corpuscular HGB Conc 32.7 g/dL (31.8-35.4); Mean Corpuscular Hemoglobin 28.9 pg (27.0-31.2); Mean Corpuscular Volume 88.2 fl (81-99); Monocytes # 0.7 K/mm3 (0.1-1.0); Monocytes % 6.8 % (1.7-9.3); Neutrophils % 65.8 % (37.0-80.0); Platelet Count 367 K/mm3 (142-424); Red Blood Count 4.61 M/mm3 (4.20-5.40); Red Cell Distribution Width 13.4 % (11.5-17.5); Uric Acid 5.5 mg/dl (2.5-6.2); White Blood Count 10.6 K/mm3 (4.8-10.8)
[2021-06-08 21:21] LABS: Coronavirus 19, PCR Not Detected (NotDetected); Influenza A, PCR Not Detected (NotDetected); Influenza B, PCR Not Detected (NotDetected)
[2021-06-08 21:21] LABS: Microscopic, Urine URINE MICROSCOPIC (MICROSCOPIC)
[2021-06-08 21:22] LABS: C-Reactive Protein 108.1 mg/L (0-4)
[2021-06-08 21:26] LABS: Appearance,Urine CLEAR (Clear); Blood, Urine 3+ (Negative); Color,Urine DK YELLOW (Yellow); Glucose,Urine (UA) Negative (Negative); Ketones,Urine 2+ (Negative); Leukocyte Esterase,Urine Negative (Negative); Nitrate,Urine Negative (Negative); Protein,Urine 3+ (Negative); Specific Gravity, Urine >= 1.030 (1.005-1.030)
[2021-06-08 21:28] LABS: Bilirubin,Urine 1+ (Negative)
[2021-06-08 21:29] LABS: NT Pro Brain Natriuretic Pep. 1670 pg/mL (0-450)
[2021-06-08 21:33] LABS: Troponin I < 0.01 ng/ml (0.00-0.034)
[2021-06-08 21:36] LABS: Procalcitonin 0.137 ng/mL (0.0-2.0)
[2021-06-08 21:37] LABS: T4 (Thyroxine) 12.8 ug/dl (5.53-11.0)
[2021-06-08 21:37] LABS: Bacteria,Urine 1+ /lpf; Squamous Epithelial Cell,Urine Occasional #/hpf (0-5)
--- NOTE | 2021-06-08 22:31 | PC.NURSE ---
received call back from dr brandon valdez for [place]. king on phone discussing admit
[2021-06-08 22:44] LABS: Erythrocyte Sedimentation Rate 28 mm/hr (0-30)
[2021-06-09] VITALS (7 sets, daily range): BP systolic 151–162; BP diastolic 58–98; PULSE 80–124; RESP 16–22; TEMP 36.3–37.2; O2SAT 91–97
[2021-06-09 00:02] LABS: Troponin I < 0.01 ng/ml (0.00-0.034)
--- NOTE | 2021-06-09 00:45 | PC.NURSE ---
pt arrived to unit at 2315, pt is alert and oriented x 3 but has some short term memory deficits had to be told multiple times by daughter in law that her was taken care of at home and multiple times the plan of care while at the hospital, pt asks multiple times will i get to go home tomorrow, I hope they let me out of here tomorrow , lungs are clear to auscultate, heart regular, unable to palpate pedal pulses d/t pain both feet are pink and blancheable, pt c/o pain 7/10 on pain scale in bilateral legs that would radiate to knees, pt tearful with any movement of legs, bilateral lower extremities red, warm to touch and tender, calvin catheter patent and draining yellow urine. calvin catheter in place for accurate I&O. CB within reach, daughter in law at bedside at this time will continue to monitor
[2021-06-09 02:52] LABS: Troponin I 0.01 ng/ml (0.00-0.034)
[2021-06-09 07:07] LABS: Basophils % 0.2 % (0.1-2.0); Eosinophils # 0.1 K/mm3 (0.0-0.4); Eosinophils % 0.5 % (0.1-12.0); Hematocrit 34.9 % (37.0-47.0); Lymphocytes # 2.7 K/mm3 (0.7-4.5); Lymphocytes % 24.6 % (10-50); Mean Corpuscular HGB Conc 34.1 g/dL (31.8-35.4); Mean Corpuscular Hemoglobin 29.8 pg (27.0-31.2); Mean Corpuscular Volume 87.4 fl (81-99); Mean Platelet Volume 7.7 fl (7.4-10.4); Monocytes # 0.7 K/mm3 (0.1-1.0); Monocytes % 6.7 % (1.7-9.3); Neutrophils # 7.4 K/mm3 (1.8-7.8); Neutrophils % 67.9 % (37.0-80.0); Platelet Count 312 K/mm3 (142-424); Red Cell Distribution Width 13.3 % (11.5-17.5); White Blood Count 10.9 K/mm3 (4.8-10.8)
--- NOTE | 2021-06-09 07:15 | PC.NURSE ---
report given to Marcello Xie RN
[2021-06-09 07:16] LABS: Anion Gap 9.5 mEq/L (5-15); Blood Urea Nitrogen 12 mg/dl (7-17); Calcium 8.5 mg/dl (8.4-10.2); Carbon Dioxide 28 mmol/L (22.0-30.0); Chloride 101 mmol/L (98-107); Creatinine Clearance Estimated 47 mL/min (50-200); Estimated Glomerular Filt Rate 79 ml/min (>60); GFR (African American) 96 ML/MIN (>60); Glucose 153 mg/dl (74-100); Magnesium 2.1 mg/dl (1.6-2.3); Potassium 3.5 mmoL/L (3.5-5.1); Sodium 135 mmol/L (136-145)
--- NOTE | 2021-06-09 07:20 | PC.NURSE ---
ECHO and BLE dopplar being performed at this time.
--- NOTE | 2021-06-09 07:22 | P.CONPHA_ITS ---
[facility] Pharmacy VTE Monitoring - Patient Demographics Admission date: 06/09/21 Report Date: 06/09/21 Time: 07:23 Allergies/Adverse Reactions: Patient Allergies Penicillins [PENICILLINS] Allergy (Intermediate, Verified 01/28/20 20:08) I-RASH Sulfa (Sulfonamide Antibiotics) [SULFA (SULFONAMIDE ANTIBIOTICS)] Allergy (Unknown, Verified 01/28/20 20:08) Height: 1.6 m Weight: 74.389 kg Patient Problems: Current Active Problems CHF (congestive heart failure) (Acute) DJD (degenerative joint disease) of knee (Acute) - VTE Risk Labs: VTE Related Lab Results Hgb 13.3 g/dL (12.2-16.2) 06/08/21 20:40 Hct 34.9 % (37.0-47.0) L 06/09/21 06:56 Plt Count 312 K/mm3 (142-424) 06/09/21 06:56 BUN 12 mg/dl (7-17) 06/09/21 06:56 Creatinine 0.70 mg/dl (0.52-1.04) 06/09/21 06:56 Estimated Creat Clear 47 mL/min (50-200) 06/09/21 06:56 VTE Score: 3 VTE Risk Level: Low Risk - Prophylaxis VTE Prophylaxis Ordered?: Yes Types of VTE Prophylaxis: TEDS Knee High Location of Applied Device: Bilateral Lower Extremeties
--- NOTE | 2021-06-09 07:24 | HMH.PHAINT ---
MEDICATION RECONCILIATION COMPLETED ON PATIENT USING EXTERNAL FILL HISTORY FROM PHARMACY. -RYLEE LEMOS, ARELISD
[2021-06-09 07:26] LABS: Hemoglobin 11.9 g/dL (12.2-16.2)
--- NOTE | 2021-06-09 07:35 | PC.NURSE ---
Parish COLON in room, report given on pt.
--- NOTE | 2021-06-09 07:46 | CT_ITS ---
PROCEDURE: CT ANGIO CHEST PE PROTOCOL CLINCIAL INDICATION: LE edema, enlarged right heart, tachycardia COMPARISON: CR XR CHEST PORTABLE from 06/08/2021 TECHNIQUE: IV Contrast: 70ML Isovue 370 Axial images obtained with sagittal and coronal reformats. All CT scans at the facility use one or more dose reduction, viz: automated exposure control, ma/kV adjustment per patient size (including targeted exams where dose is matched to indication, i.e. head), or iterative reconstruction technique. FINDINGS: HEART AND MEDIASTINAL STRUCTURES: No evidence of pulmonary embolus. No evidence of aortic aneurysm or dissection. No mediastinal or hilar mass. There is cardiomegaly. There is prominent enlargement of the left atrium with mild enlargement of the right atrium as well. LUNGS AND PLEURAL SPACES: Left lower lobe atelectasis. No lobar consolidation or collapse. BONY STRUCTURES: Thoracic scoliosis convex right. Mild kyphosis. No acute bony anomaly. UPPER ABDOMEN: Hiatal hernia. ADDITIONAL FINDINGS: No other significant abnormalities. IMPRESSION: No evidence of pulmonary embolus or aortic aneurysm. Cardiomegaly with enlargement of the right and the left atrium Dictated by: Raudel Bond MD 06/09/2021 10:02 Raudel Bond MD in OV 06/09/2021 10:02
--- NOTE | 2021-06-09 07:47 | HMH.CNCARD ---
History of Present Illness Consult date: 06/09/21 Chief complaint: LE edema Additional Medical History:: 1. Hypertension, treated for many years 2. Lymphedema of the lower extremities 3. Remote stress test in 2000 showing no ischemia with normal ejection fraction. Notation of poor exercise tolerance as patient reached target heart rate in less than 2 minutes. History of present illness: 85-year-old white female with history of hypertension presented to the emergency department after waking up yesterday with increased lower extremity edema and difficulty walking. She does relate a history of lower extremity edema over the last 3 years and has seen the lymphedema clinic with treatment intermittently over that time with improvement in symptoms. However 2 weeks ago her lower extremities began to swell to the point of being quite painful and limiting her activities. She denies any chest pain, pressure or tightness and does not notice any significant increase in shortness of breath. She does not seem to be very active at home other than basic ADLs. Patient was admitted through the ER for further evaluation. She was given IV Lasix in the ER due to lower extremity edema and elevated BNP but no evidence of CHF on chest x-ray. EKG shows sinus tachycardia at 100 bpm with some sinus arrhythmia noted. She denies history of diabetes, hyperlipidemia or prior cardiac issues. Lower extremity Dopplers being performed at this time and echocardiogram has been finished earlier this morning with preliminary results showing generous right heart size and biatrial enlargement. LV function is estimated to be normal. [facility] History Medical History: Reports:: Hypertension Denies:: Diabetes Mellitus Type 1, Diabetes Mellitus Type 2 *Have you ever received a pneumonia vaccine?: No *Have you received a flu vaccine this season?: No Other Medical History: Reports: Arthritis Laterality Cases: Left: Arthroscopy Hip, Bilateral: Other Other Surgeries: Yes: Other Amputation: No Fractures: No - *Social History Smoking Status: Never smoker Alcohol Intake: never Substance Use Type: denies use *Occupational Status:: retired Household Members: spouse *Travel in the last 8 weeks: None Family Hx:: No significant family history Meds Home Medications Medication Instructions Recorded Confirmed Type Amlodipine Besylate [Norvasc 5mg 5 mg PO DAILY 12/01/17 06/08/21 History tablet] Allergies Allergy/AdvReac Type Severity Reaction Status Date / Time Penicillins [PENICILLINS] Allergy Intermediate I-RASH Verified 01/28/20 20:08 Sulfa (Sulfonamide Allergy Unknown Verified 01/28/20 20:08 Antibiotics) [SULFA (SULFONAMIDE ANTIBIOTICS)] Exam Vital signs and Labs for Last 24 Hours: Temp Pulse Resp BP Pulse Ox 98.6 F 87 17 151/69 H 97 06/09/21 04:00 06/09/21 04:00 06/09/21 04:00 06/09/21 04:00 06/09/21 04:00 Laboratory Results - last 24 hr 06/08/21 20:40: WBC 10.6, RBC 4.61, Hgb 13.3, Hct 40.7, MCV 88.2, MCH 28.9, MCHC 32.7, RDW 13.4, Plt Count 367, MPV 8.0, Neut % (Auto) 65.8, Lymph % (Auto) 26.8, [place] % (Auto) 6.8, Eos % (Auto) 0.2, Baso % (Auto) 0.5, Neut # (Auto) 7.0, Lymph # (Auto) 2.9, [place] # (Auto) 0.7, Eos # (Auto) 0.0, Baso # (Auto) 0.1, ESR 28 06/08/21 20:40: Sodium 138, Potassium 3.8, Chloride 101, Carbon Dioxide 26, Anion Gap 14.8, BUN 11, Creatinine 0.80, Estimated Creat Clear 66, Estimated GFR 68, Est GFR ( Amer) 82, Glucose 132 H, Calcium 9.3, Total Bilirubin 1.0, AST 41 H, ALT 25, Alkaline Phosphatase 104, C-Reactive Protein 108.1 H, Total Protein 7.8, Albumin 4.4, Globulin 3.4 H, Albumin/Globulin Ratio 1.3, Procalcitonin 0.137 06/08/21 20:40: Uric Acid 5.5, Troponin I < 0.01 06/08/21 20:40: NT-Pro-B Natriuret Pep 1670 H, TSH 3.10, Thyroxine (T4) 12.8 H 06/08/21 21:10: Urine Color Dk yellow, Urine Appearance Clear, Urine pH 6.0, Ur Specific [place] >= 1.030, Urine Protein 3+, Urine Glucose (UA) Negative, Urine Ketones 2+, Urine B
--- NOTE | 2021-06-09 08:00 | CA_ITS ---
APPROVED REPORT Bilateral Lower Extremity Venous Study for DVT. 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 Risk Factors Immobility Patient intolerant to exam, best exam possible. Past History Vein Imaging CFV (R): compressive, spontaneous, phasic, augmentation SFJ (R): compressive, spontaneous, phasic, augmentation FEM (R): compressive, spontaneous, phasic, augmentation POP (R): compressive, spontaneous, phasic, augmentation DFV (R): compressive, spontaneous, phasic, augmentation PTV (R): compressive, spontaneous, phasic, augmentation GSV (R): compressive, spontaneous, phasic, augmentation CFV (L): compressive, spontaneous, phasic, augmentation SFJ (L): compressive, spontaneous, phasic, augmentation FEM (L): compressive, spontaneous, phasic, augmentation POP (L): compressive, spontaneous, phasic, augmentation DFV (L): compressive, spontaneous, phasic, augmentation PTV (L): compressive, spontaneous, phasic, augmentation GSV (L): compressive, spontaneous, phasic, augmentation Findings Color flow duplex demonstrates no evidence of DVT of the following bilateral lower extremity Veins:Common Femoral Vein, Femoral Vein, Popliteal Vein, Posterior Tibial Veins, Deep Femoral Vein, Peroneal Veins. Negative for DVT. Conclusion Negative for DVT. Electronically signed by : Raudel Bond MD 06/09/2021 16:41:30
--- NOTE | 2021-06-09 08:00 | CA_ITS ---
APPROVED REPORT EXAM: Comprehensive 2D, Doppler, and color-flow Echocardiogram Proprietary Trader: Riri Kahn RCS, RVS Ht: 5 ft 3 in Wt: 228lbs BSA: 2.04 BP: 166/63 mmHg Rhythm: Irregular Indications: MUmur, HTN, CHF, Chronic lymph edema Echo Enhancing Agent Comments: Poor Acoustics with patient intolerance, best exam possible 2D Dimensions IVSd 0.99 cm LVEF (Visual) 77.80 % PWd 0.64 cm LA Volume 64.00 mL LVDd 4.51 cm LA Volume Index 31.876423 mL/m2 (M/F) 16-34 LVDs 2.42 cm Left Atrium 3.17 cm LVOT 1.84 cm (M/F) 1.5-2.5 M-Mode Dimensions LA Diam 3.87 cm (1.9-4.0) LVDd 4.84 cm (3.5-5.7) Ao Diam 2.63 cm (2.0-3.7) LVDs 2.96 cm (3.5-5.7) IVSd 1.00 cm (0.6-1.1) PWd 0.78 cm (0.6-1.1) EF (Teich) 69.10% EPSs 0.30 cm FS 38.80% EDV (Teich) 109.60 mL TAPSE 2.58 (<1.7) ESV (Teich) 33.90 mL LV Diastology E Decel Time 163.00 (160-240 msec) E/A Ratio 1.25 MED E' 11.30 (< 7 cm/sec) MED A' 12.90 cm/s E'/MED E' Ratio 11.26 (>14) LAT E' 14.20 (<10 cm/sec) LAT A' 11.00 cm/s E/LAT E' Ratio 8.96 (>14) Pulm Vein s 69.00 cm/sec Pulm Vein d 30.00 cm/sec Ar-A Duration 150.00 msec Aortic Valve LVOT Max 124.00 (70-110 cm/s) LVOT VTI 25.84 cm AoV Peak Darell. 182.00 (50-130 cm/s) AO Peak GR. 13.20 mmHg AO Mean GR. 7.40 (<5 mmHg) AO VTI 43.78 (18-25 cm) KELLEY (VTI) 1.57 (2.5-4.5 cm2) Mitral Valve MV A Velocity 102.00 (40-130 cm/s) E/A Ratio 1.25 MV Decel. Time 163.00 (160-240 ms) Pulmonary Valve PV Peak Velocity 106.00 (50-150 cm/s) MD End VMAX 187.00 cm/s Tricuspid Valve TR P. Velocity 303.00 cm/s RAP Estimate 10.00 mmHg RVSP 46.80 mmHg Left Ventricle Left atrium is mildly enlarged, left ventricle is normal size, mild concentric left ventricular hypertrophy, visually estimated ejection fraction 55% with no regional wall motion abnormality, ST parameters are within normal range. Right Ventricle Right atrium and right ventricle mildly enlarged with normal contractility. Aortic Valve Aortic valve is minimally thickened and fibrosed there is no aortic stenosis or aortic insufficiency. Mitral Valve Mitral valve is grossly normal, there is trace mitral regurgitation. Tricuspid Valve Tricuspid grossly normal, there is trace tricuspid regurgitation, calculated right ventricular systolic pressure is 43 mmHg. Pulmonic Valve Pulmonic valve is poorly visualized. Great Vessels Aortic root is normal size. Inferior vena cava is not well visualized. Pericardium No significant pericardial effusion noted. Conclusion 1. Mild biatrial normal, normal left ventricular size, mild concentric left ventricular hypertrophy, visually estimated ejection fraction 55% with no regional wall motion abnormality, diastolic parameters are within normal range. 2. Mildly enlarged right ventricle with normal contractility. 3. Trace mitral and tricuspid regurgitation, calculated right ventricular systolic pressure is 43 mmHg. 4. No significant pericardial effusion noted. Electronically signed by : Angel García, 06/09/2021 15:28:57
--- NOTE | 2021-06-09 08:15 | PC.NURSE ---
Dr. Steve in room.
--- NOTE | 2021-06-09 08:58 | HMH.HP ---
*Admission Date: 06/09/21 <BenKhadar welcha 06/09/21 08:58> *Chief complaint: CHF <BenKelle - 06/09/21 09:06> *History of present illness: Ms. Rahman is an 85-year-old white female with history of HTN, Dysrhythmia, Arthritis, and Lymphedema who presented to the [facility] ED after waking up yesterday with increased lower extremity edema and difficulty walking. Her daughter is present at the bedside and provides some of the history as the patient is a somewhat poor historian. She does relate a history of lower extremity edema over the last 3 years and has been seen in the lymphedema clinic with treatment intermittently over that time with improvement in symptoms. However, 2 weeks ago her lower extremities began to swell to the point of being quite painful and limiting her activities. She denies any chest pain, pressure, or tightness and has not noticed any significant increase in shortness of breath. She does not seem to be very active at home other than basic ADLs. Both she and her daughter confirm that she has been taking only amlodipine and MVI at home as she ran out of Lasix a few months ago and did not have the prescription refilled. Upon arrival, she was found to have lower extremity edema and elevated BNP without evidence of CHF on chest x-ray. Her EKG showed sinus tachycardia at 100bpm with some sinus arrhythmia noted. She received a dose of IV Lasix and was admitted for further evaluation and cardiology consultation. At the time of this writing, lower extremity Dopplers have been performed and echocardiogram was finished earlier this morning with preliminary results showing generous right heart size and biatrial enlargement. LV function is estimated to be normal. Out of concern for pulmonary embolus, she has been started on lovenox and cardiology plans for CTA of the chest. <Kelle Contreras 06/09/21 09:23> [facility] History Medical History: Reports:: Arrhythmia, Hypertension Denies:: Diabetes Mellitus Type 1, Diabetes Mellitus Type 2 <Kelle Contreras 06/09/21 09:23> *Have you ever received a pneumonia vaccine?: No <Kelle Contreras 06/09/21 08:58> *Have you received a flu vaccine this season?: No <Kelle Contreras 06/09/21 08:58> Other Medical History: Reports: Arthritis <Ben06/09/21 08:58> Laterality Cases: Left: Arthroscopy Hip, Bilateral: Other <Ben06/09/21 08:58> Other Surgeries: Yes: Other <Khadar Contreras06/09/21 08:58> Amputation: No <Khadar Contreras06/09/21 08:58> Fractures: No <Ben06/09/21 08:58> - *Social History Smoking Status: Never smoker <Khadar Contreras06/09/21 08:58> Alcohol Intake: never <Khadar Contreras06/09/21 08:58> Substance Use Type: denies use <Ben,06/09/21 08:58> *Occupational Status:: retired <Ben06/09/21 08:58> Household Members: spouse <Ben06/09/21 08:58> *Travel in the last 8 weeks: None <Ben06/09/21 08:58> Family Hx:: Heart Attack <Ben06/09/21 09:23> Review of Systems - Constitutional Reports weakness, Denies body ache(s), Denies chills, Denies fever(s), Denies headache(s) <Khadar Contreras06/09/21 09:23> - Eyes Denies blurry vision, Denies change in vision <Khadar Contreras06/09/21 09:23> - ENT Denies nasal congestion, Denies sore throat <Ben06/09/21 09:23> - *Cardiovascular Reports leg pain with activity, Reports leg swelling, Denies chest pain, Denies shortness of breath with activity <Khadar Contreras06/09/21 09:23> - *Respiratory Denies chest congestion, Denies cough, Denies wheezing <Ben06/09/21 09:23> - *Gastrointestinal Denies abdominal pain, Denies constipation, Denies loose stools, Denies nausea, Denies vomiting <Khadar Contreras06/09/21 09:23> - *Genitourinary Denies difficulty urinating <Kelle Contreras - 06/09/21 09:23> - *Musculoskeletal Reports abnormal walking, Reports joint pain, Reports muscle weakness <Kelle Contreras - 06/09/21 09:23> - *Neurologic Reports weakness, Denies dizziness, Denies
--- NOTE | 2021-06-09 09:15 | PC.NURSE ---
Pt. to Radiology for CTA of chest.
--- NOTE | 2021-06-09 10:40 | PC.NURSE ---
Pt. refuses to take avapro and lopressor, pt. states i don't want to change things around, i will only take my Norvasc. Parish Espino notified.
--- NOTE | 2021-06-09 11:53 | PC.NURSE ---
Attempted to place TEDS, BLE with +3 Pitting edema, unable to get largest sized TEDS over feet.
--- NOTE | 2021-06-09 16:00 | PC.NURSE ---
Nurse to room to check on pt. Pt. noted to be up walking in room, leaning against bedside table, crying and saying im scared, i don't know where i'm at. Nurse x3 assisted pt. to sit in chair, bed changed, Mckeon catheter noted to be pulled out and laying on bed. Pt. assisted to bed x3 nurses. Pt. tolerated fair, Bed alarm turned on. Chux pads in place. Nurse educated pt. on pushing Call button for help, Door left open for nurse to easily hear pt. Pt. denies needs, call light and bedside table within reach, will continue to monitor.
--- NOTE | 2021-06-09 16:13 | PC.NURSE ---
Dr. Steve notified of pt. getting up and pulling Calvin catheter out. v/u. order received to leave calvin catheter out and nurse may use purwick if needed. Nurse r/v.
--- NOTE | 2021-06-09 16:20 | PC.NURSE ---
Routine reassessment completed. Mckeon no longer in place see previous note. No further changes since previous assessment. Pt. denies needs, will continue to monitor.
--- NOTE | 2021-06-09 16:28 | PC.NURSE ---
Kelsie Rahman, Daughter-in law notified and updated on pt. condition.
--- NOTE | 2021-06-09 20:00 | PC.NURSE ---
Assisted pt to using bedpan to void. Pt was slightly confused at this time. Voided approximately 450 in bedpan and had some on chux as well. Legs re-elevated on pillow and warm blanket applied.
--- NOTE | 2021-06-09 20:20 | PC.NURSE ---
Gross edema remains (BLE) at least 3+. HR noted to be irregular w/murmur. Lungs clear, diminished. +BS all 4 quads. Pale in color. Aware of her name, her visitor's name, and that she is in the hospital. Legs and foot of bed elevated at this time.
--- NOTE | 2021-06-09 20:54 | PC.NURSE ---
Pt currently sleeping at this time. Pt's [id number] (Kelsie) at bs.
--- NOTE | 2021-06-10 01:20 | PC.NURSE ---
Pt awake and stating that she has to void.. Placed on padded bedpan, states to give her some time. Pt fell asleep on bed arce and did not void. Bed arce removed. Pt repositioned in bed, legs elevated and additional warm blanket given. Pt denies any pain or needing anything at this time. Pt's [id number] remains at bs.
[2021-06-10 02:00] VITALS: BP 163/61; PULSE 82; RESP 19; TEMP 36.6; O2SAT 92
--- NOTE | 2021-06-10 03:45 | PC.NURSE ---
Pt rang out stating that she had to go to the bathroom. Upon entering room, pt leaning forward in bed saying that she was going to throw up and that she was having severe intermittent abdominal pain. Emesis bag given. Alot of belching and gagging noted, but no emesis. Pt assisted up to bsc x2 assist. While pt up to bsc, Zofran 4mg IV given for nausea. After sitting on bsc for an extended period of time, pt was noted to have a very large loose bm. Afterwards, pt assisted back to bed x2 assist, legs re-elevated. Reports feeling better now and ready for bed . Cshudago-nx-mck Kelsie remains at bs.
--- NOTE | 2021-06-10 04:55 | PC.NURSE ---
BLE remain grossly edematous w/ =>3+ pitting. Pt was able to get up to bsc with 2 person assist. No acute changes from previous assessment. No complaints of pain or discomfort. BLE remain elevated. V/S stable. [id number] remains at bs.
--- NOTE | 2021-06-10 06:11 | PC.NURSE ---
Pt rang out complaining of lower back pain stating that she would like to put some of that cream (suave) on it . Informed pt that we currently don't have access to anything like that, but I could get her some Tylenol that she has ordered. She then states that Tylenol is good, but they have ruined it. The have started making it where it has that jagged edge on it and I just can't swallow it . Offered to get Tylenol (liquid) for her instead. Pt agrees.
--- NOTE | 2021-06-10 06:56 | PC.NURSE ---
report given to Marcello Xie RN
[2021-06-10 07:07] LABS: Anion Gap 8.7 mEq/L (5-15); Blood Urea Nitrogen 15 mg/dl (7-17); Calcium 8.7 mg/dl (8.4-10.2); Carbon Dioxide 30 mmol/L (22.0-30.0); Chloride 100 mmol/L (98-107); Creatinine Clearance Estimated 47 mL/min (50-200); Estimated Glomerular Filt Rate 68 ml/min (>60); GFR (African American) 82 ML/MIN (>60); Glucose 137 mg/dl (74-100); Potassium 3.7 mmoL/L (3.5-5.1); Sodium 135 mmol/L (136-145)
[2021-06-10 07:34] VITALS: BP 126/47; PULSE 81; RESP 17; TEMP 36.7; O2SAT 93
--- NOTE | 2021-06-10 07:35 | PC.NURSE ---
Parish COLON in room.
--- NOTE | 2021-06-10 07:51 | HMH.PNCARD ---
Subjective Date: 06/10/21 Time: 07:51 Principal diagnosis: LE edema Interval history: 85-year-old white female in bed in no acute distress. IV Lasix given yesterday after echocardiogram report shows increased in right ventricular systolic pressure and biatrial enlargement. Discussed the results of the echocardiogram and recommendations for medical therapy for the patient. Her lower extremity edema has improved some but is still present to some degree. CTA of the chest showed no evidence of pulmonary emboli. Exam Vital signs and Labs for Last 24 Hours: Temp Pulse Resp BP Pulse Ox 98.1 F 81 17 126/47 L 93 L 06/10/21 07:34 06/10/21 07:34 06/10/21 07:34 06/10/21 07:34 06/10/21 07:34 Laboratory Results - last 24 hr 06/10/21 06:37: Sodium 135 L, Potassium 3.7, Chloride 100, Carbon Dioxide 30, Anion Gap 8.7, BUN 15, Creatinine 0.80, Estimated Creat Clear 47, Estimated GFR 68, Est GFR ( Amer) 82, Glucose 137 H, Calcium 8.7 I & O for Last 24 hours: Intake & Output 06/07/21 06/08/21 06/09/21 06/10/21 11:59 11:59 11:59 11:59 Output Total 1100 / 1100 400 / 400 Balance -1100 / -1100 -400 / -400 Weight 164 lb - Constitutional no acute distress - *Routine HEENT Exam Head: Present: normocephalic Eye: Present: EOMI, PERRL ENT: Present: mucous membranes moist - *Routine Neck Exam Present: supple. Absent: lymphadenopathy - *Routine Respiratory Exam Present: CTA bilaterally - *Routine Cardiovascular Exam Present: RRR - *Routine Abdominal Exam Present: soft, normoactive bowel sounds. Absent: tenderness - *Routine Extremities Exam Present: edema. Absent: cyanosis, clubbing - *Routine Skin Exam Present: warm. Absent: rash - *Routine Neurological Exam Present: alert, oriented X3 Progress Note: A&P (1) Lower extremity edema Status: Acute (2) Elevated brain natriuretic peptide (BNP) level Status: Acute (3) Tachycardia Status: Acute (4) Hypertension Status: Acute (5) Chronic back pain Status: Acute (6) Biatrial enlargement Status: Acute (7) Diastolic dysfunction with acute on chronic heart failure Status: Acute Assessment and Plan for All Diagnoses:: 1. Lower extremity edema with elevated right-sided heart pressure and biatrial enlargement on echo. Patient has diastolic congestive heart failure. Recommend discontinuing Norvasc and using metoprolol succinate 25 mg nightly along with Lasix 20 mg daily and Aldactone 25 mg daily. If blood pressure would allow then would also institute low-dose ARB therapy in the future. I discussed all of this with the patient and her daughter and will defer to PCP for institution of this therapy after discussion options with the patient. She was reluctant to start this type of therapy yesterday. 2. Tachycardia, improved 3. Hypertension, improved Patient could be discharged from cardiology standpoint. If she wishes to follow-up in our office 2-week follow-up with a BMP in 1 week recommended.
[2021-06-10 08:06] VITALS: O2SAT 93
--- NOTE | 2021-06-10 08:08 | HMH.ACPN2 ---
<Leslee Wilks - Last Filed: 06/10/21 08:08> Internal Medicine - PN: Subj *Date: 06/10/21 *Time: 08:08 Interval history: Patient states she feels about the same today. She slept well last night but did not eat very much breakfast. She denies any pain. Exam Vital signs and Labs for Last 24 Hours: Temp Pulse Resp BP Pulse Ox 98.1 F 81 17 126/47 L 93 L 06/10/21 07:34 06/10/21 07:34 06/10/21 07:34 06/10/21 07:34 06/10/21 07:34 Laboratory Results - last 24 hr 06/10/21 06:37: Sodium 135 L, Potassium 3.7, Chloride 100, Carbon Dioxide 30, Anion Gap 8.7, BUN 15, Creatinine 0.80, Estimated Creat Clear 47, Estimated GFR 68, Est GFR ( Amer) 82, Glucose 137 H, Calcium 8.7 I & O for Last 24 hours: Intake & Output 06/07/21 06/08/21 06/09/21 06/10/21 11:59 11:59 11:59 11:59 Output Total 1100 / 1100 400 / 400 Balance -1100 / -1100 -400 / -400 Weight 164 lb - Constitutional no acute distress - *Routine Respiratory Exam Present: CTA bilaterally - *Routine Cardiovascular Exam Present: RRR - *Routine Abdominal Exam Present: soft, normoactive bowel sounds. Absent: tenderness - *Routine Extremities Exam Present: edema (Bilateral lower extremity improved slightly). Absent: cyanosis, clubbing - *Routine Skin Exam Present: pallor - *Routine Neurological Exam Present: alert, oriented X3 Assessment and Plan (1) Lower extremity edema Status: Acute Category: Medical Code(s): R60.0 - Localized edema (2) Elevated brain natriuretic peptide (BNP) level Status: Acute Category: Medical Code(s): R79.89 - Other specified abnormal findings of blood chemistry (3) Tachycardia Status: Acute Category: Medical Code(s): R00.0 - Tachycardia, unspecified (4) Hypertension Status: Acute Category: Medical Code(s): I10 - Essential (primary) hypertension (5) Chronic back pain Status: Acute Category: Medical Code(s): M54.9 - Dorsalgia, unspecified; G89.29 - Other chronic pain (6) Biatrial enlargement Status: Acute Category: Medical Code(s): I51.7 - Cardiomegaly (7) Diastolic dysfunction with acute on chronic heart failure Status: Acute Category: Medical Code(s): I50.33 - Acute on chronic diastolic (congestive) heart failure - Assessment and plan all Dx Assessment and Plan for all problems:: Cardiology has made medication changes. Patient is very pale this morning and H&H dropped with previous lab work. We will recheck blood work this morning. Will discuss further care with Dr. Steve. <Dominick Steve - Last Filed: 06/11/21 08:21> Internal Medicine - PN: Subj *Date: 06/11/21 *Time: 08:19 Exam Vital signs and Labs for Last 24 Hours: Temp Pulse Resp BP Pulse Ox 98.3 F 71 18 143/94 H 95 06/11/21 04:15 06/11/21 04:15 06/11/21 04:15 06/11/21 04:15 06/11/21 04:15 Laboratory Results - last 24 hr 06/10/21 06:37: WBC 10.6, RBC 4.14 L, Hgb 12.4, Hct 36.9 L, MCV 89.2, MCH 30.0, MCHC 33.6, RDW 13.3, Plt Count 339, MPV 8.6, Neut % (Auto) 80.5 H, Lymph % (Auto) 15.1, Kent % (Auto) 4.1, Eos % (Auto) 0.1, Baso % (Auto) 0.1, Neut # (Auto) 8.5 H, Lymph # (Auto) 1.6, Kent # (Auto) 0.4, Eos # (Auto) 0.0, Baso # (Auto) 0.0 06/10/21 06:37: Sodium 137, Potassium 3.6, Chloride 100, Carbon Dioxide 30, Anion Gap 10.6, BUN 15, Creatinine 0.80, Estimated Creat Clear 47, Estimated GFR 68, Est GFR ( Amer) 82, Glucose 137 H, Calcium 9.0, Total Bilirubin 0.6, AST 54 H D, ALT 24, Alkaline Phosphatase 114, Total Protein 6.8, Albumin 3.7 D, Globulin 3.1, Albumin/Globulin Ratio 1.2 I & O for Last 24 hours: Intake & Output 06/08/21 06/09/21 06/10/21 06/11/21 11:59 11:59 11:59 11:59 Intake Total 120 / 120 560 / 560 Output Total 1100 / 1100 400 / 400 Balance -1100 / -1100 -280 / -280 560 / 560 Weight 164 lb 159 lb 8 oz Assessment and Plan (1) Lower extremity edema Status: Acute Category: Medical Code(s): R60.0 - Lo
[2021-06-10 08:22] LABS: Basophils % 0.1 % (0.1-2.0); Eosinophils % 0.1 % (0.1-12.0); Hematocrit 36.9 % (37.0-47.0); Hemoglobin 12.4 g/dL (12.2-16.2); Lymphocytes # 1.6 K/mm3 (0.7-4.5); Lymphocytes % 15.1 % (10-50); Mean Corpuscular HGB Conc 33.6 g/dL (31.8-35.4); Mean Corpuscular Volume 89.2 fl (81-99); Mean Platelet Volume 8.6 fl (7.4-10.4); Monocytes # 0.4 K/mm3 (0.1-1.0); Monocytes % 4.1 % (1.7-9.3); Neutrophils # 8.5 K/mm3 (1.8-7.8); Neutrophils % 80.5 % (37.0-80.0); Platelet Count 339 K/mm3 (142-424); Red Blood Count 4.14 M/mm3 (4.20-5.40); Red Cell Distribution Width 13.3 % (11.5-17.5); White Blood Count 10.6 K/mm3 (4.8-10.8)
[2021-06-10 08:34] LABS: Chloride 100 mmol/L (98-107); Sodium 137 mmol/L (136-145)
[2021-06-10 08:35] LABS: Potassium 3.6 mmoL/L (3.5-5.1)
[2021-06-10 08:37] LABS: Alanine Aminotransferase 24 U/L (12-78); Alkaline Phosphatase 114 U/L (38-126); Anion Gap 10.6 mEq/L (5-15); Aspartate Amino Transferase 54 U/L (14-36); Bilirubin,Total 0.6 mg/dl (0.2-1.3); Blood Urea Nitrogen 15 mg/dl (7-17); Carbon Dioxide 30 mmol/L (22.0-30.0); Creatinine Clearance Estimated 47 mL/min (50-200); Estimated Glomerular Filt Rate 68 ml/min (>60); GFR (African American) 82 ML/MIN (>60)
[2021-06-10 08:38] LABS: Albumin Level 3.7 g/dl (3.5-5.0); Albumin/Globulin Ratio 1.2 (1.1-1.8); Globulin 3.1 g/dL (1.3-3.2); Glucose 137 mg/dl (74-100); Total Protein,Serum 6.8 g/dl (6.3-8.2)
--- NOTE | 2021-06-10 10:24 | PC.NURSE ---
PT in with pt. at this time.
--- NOTE | 2021-06-10 10:38 | HMH.PTEV ---
Physical Therapy Evaluation Rehab PT IP Evaluation Start: 06/10/21 08:47 Freq: ONCE Status: Active Protocol: Document 06/10/21 10:36 PHOMARCIO (Rec: 06/10/21 10:38 PHORNE [id number]) Subjective/History History History 85 yowf adm to [facility] with increased edema and CHF exac. She reports she is independent with RW for ambulation at baseline. Subjective Subjective Pt with no c/o this am, I feel really good right now. Rehab PT IP Eval Objective Appearance Patient Behavior Appropriate Patient Orientation Person,Place Difficulty following instructions none Speech Pattern Clear Ambulation Patient Able to Ambulate Yes Ambulation Observation IP General Gait Pattern Observation Wide Based Gait,Shuffling Step Ambulation Distance (feet) 25 Ambulation Assistive Device Rolling Walker Ambulation Ability Supervision/Stand by Balance Ability to Arise Able, uses arms to help Sitting Balance Steady, safe Standing Balance Steady, wide stance Dynamic Sitting Balance Ability Good Dynamic Standing Balance Ability Fair Transfers Bed Transfer Ability Supervision/Stand by Chair Transfer Ability Supervision/Stand by Sit to Stand Bed Transfer Ability Supervision/Stand by Sit to Stand Chair Transfer Ability Supervision/Stand by ROM All Extremities PT ROM Status WFL MMT All Extremities PT MMT WFL Rehab PT IP prob,goals,plan Problems Date of Evaluation: 06/10/21 PT IP Problems Transfers,Gait Rehab Potential Rehab Potential Good Plan PT Intervention Plan Transfers,Gait,Therapeutic Exercise PT Plan Frequency BID Duration LOS Discharge Goals Bed Transfer Ability Independent Sit to Stand Chair Transfer Ability Independent Ambulation Assistive Device Rolling Walker Ambulation Distance (feet) 40 Discharge Plan PT Discharge Plan Pt is appropriate to return home once medically stable. G -code Required No Eval Complexity Eval Charge Codes 50340 - Moderate Complexity PHYSICIAN CERTIFICATION: I certify the specified therapy services for Ratna Rahman are required, authorized, and reviewed every 30 days.
--- NOTE | 2021-06-10 11:06 | SW/DCPLANNER ---
Addendum entered by Virginia Bueno 06/13/21 10:43: Stephany with [facility] has confirmed that services will begin tomorrow for this patient. Addendum entered by Virginia Bueno 06/13/21 10:28: Patient information and order has been faxed to [facility]. I will follow up with agency once patient information is reviewed. Original Note: I spoke with this patient and patients family (Kelsie) regarding discharge plans. Patient was evaluated by PT today: safe to return home. Patient stated that her plan was to return home once medically stable for discharge. Patient is agreeable to home health services (no preference) at time of discharge. Patient stated that she uses a rolling walker at home. Patient daughter in law (Kelsie) concurs with above plan. Dr Steve has stated that pending no setbacks patient will discharge tomorrow. If patient discharges over the weekend I will set up with home health on Sunday morning.
[2021-06-10 12:00] VITALS: BP 129/68; PULSE 76; RESP 17; TEMP 36.7; O2SAT 94
[2021-06-10 16:00] VITALS: BP 143/52; PULSE 76; RESP 18; TEMP 36.9; O2SAT 96
--- NOTE | 2021-06-10 16:37 | PC.NURSE ---
Routine assessment completed. VSS. No changes from previous assessment completed. Pt. denies pain, call light within reach, Bed alarm on, will continue to monitor.
[2021-06-10 20:30] VITALS: BP 152/59; PULSE 68; RESP 18; TEMP 36.9; O2SAT 94
--- NOTE | 2021-06-10 20:30 | PC.NURSE ---
WITH PT ASSESSMENT SHE KNEW HER NAME AND DATE OF ,BUT DID NOT KNOW WHERE SHE WAS AT,SAID SHE WAS AT THE BANK,THE [id number] SAID NOW MOM WHERE ARE YOU AND SHE THE PT. HESITATED AND SAID SHE DOES THIS SOMETIMES AND DOES NOT KNOW WHERE SHE IS,BED ALARM HAS BEEN ON TODAY AND REMAINS ON AT THIS TIME,DAUGHTER-N LAW AT BEDSIDE NOW.WILL CONTINUE TO MONITOR
--- NOTE | 2021-06-10 22:23 | PC.NURSE ---
PT HAD AWAKEN AND SAID SHE NEEDED TO GO TO BATHROOM,UPON ENTERING ROOM PT REPORTS SHE BELIEVES SHE HAS GONE SOME ALREADY,PT HAD A LOOSE STOOL,SOME HAD ALREADY GOTTEN ON HER BED AND ON HER LEGS AND GOWN,BED LINENS AND GOWN CHANGED WHILE PT ON BSC.ASKED PT IF SHE WANTED A DEPEND ON AND SHE SAID WHAT EVER WE THOUGHT,[id number] SAID THAT WAY IT WOULD NOT GET ALL OVER YOU,SO SHE AGREED AND A DEPEND WAS PLACED ON PT AFTER SHE RETURNED TO BED.BLE ELEVATED ON PILLOW AND BED ALARM ACTIVATED AGAIN.TOLD PT TO RING WHEN SHE WANTED TO GO TO BSC AGAIN AND WE WOULD HELP HER,PT V/U
--- NOTE | 2021-06-11 02:10 | PC.NURSE ---
CHECKING ON PT AND SHE SORTA MOANED,ASKED IF SHE WAS ALRIGHT AND SHE SAID HER HIP WAS HURTING SOME,OFFERED A PILLOW TO POSITION HER AND SHE SAID YES THAT MAY HELP,WITH TAKING PILLOW IN SHE HAD ME PLACE IN BEHIND HER,I EVEN PUT HEAD OF BED DOWN SOME AND SHE SAID THAT HELPED,OFFERED SOME TYLENOL AND SHE SAID SHE DID NOT NEED ANY.PT HAS ALSO C/O HER RIGHT WRIST HURTING ,COULD BE SOME ARTHRITIS OR WERE SHE HAS HAD LABS OR IV.PT ALERT AND ORIENTED TO PERSON,PLACE AND SITUATION,GAVE PT A PITCHER OF WATER.WILL CONTINUE TO MONITOR
[2021-06-11 04:15] VITALS: BP 143/94; PULSE 71; RESP 18; TEMP 36.8; O2SAT 95
[2021-06-11 05:00] VITALS: BMI 28.2
--- NOTE | 2021-06-11 05:03 | PC.NURSE ---
NO ACUTE CHANGES FROM PREVIOUS ASSESSMENT,BLE WITH 3+ PITTING EDEMA NOTED,LEGS HAVE BEEN ELEVATED THROUGHTOUT THE NIGHT.PT HAS SLEPT OFF AND ON THROUGHTOUT THE NIGHT,SHE HAD A LOOSE STOOL AND VOID X1 THUS FAR THIS SHIFT.LUNGS CLEAR ALL FRONT,MEDICATED WITH TYLENOL ELIXER FOR NECK PAIN AND RIGHT WRIST PAIN.PT HAS BEEN SITTING UP MOST OF THE NIGHT SLUMPED AND ASLEEP,HAVE REPOSTIONED WITH PILLOWS,PT DENIES NEEDING TO GO TO BSC AT THIS TIME,WILL CONTINUE TO MONITOR
[2021-06-11 08:00] VITALS: O2SAT 94
[2021-06-11 08:19] VITALS: BP 155/74; PULSE 71; RESP 16; TEMP 36.7; O2SAT 94
--- NOTE | 2021-06-11 08:39 | PC.NURSE ---
Assisting pt with taking her medication this morning. She is somewhat confused about her water she is drinking as well as how long she has been in the hospital. Dr. Steve has rounded and is going to discharge home today with Home Health visits planned...BL Pedal Pulses palpated, >= 3+ pitting edema remains. No redness or heat.
--- NOTE | 2021-06-11 08:47 | HMH.ACPN2 ---
Internal Medicine - PN: Subj *Date: 06/11/21 *Time: 08:47 Interval history: Patient states he rested well through the night. Nursing staff notes some occasional mild confusion but easily reoriented. She denies pain in her legs this morning. She was able to ambulate 25 feet with physical therapy yesterday using a walker. It was their opinion she was safe to return home. Exam Vital signs and Labs for Last 24 Hours: Temp Pulse Resp BP Pulse Ox 98.0 F 71 16 155/74 H 94 L 06/11/21 08:19 06/11/21 08:19 06/11/21 08:19 06/11/21 08:19 06/11/21 08:19 I & O for Last 24 hours: Intake & Output 06/08/21 06/09/21 06/10/21 06/11/21 11:59 11:59 11:59 11:59 Intake Total 120 / 120 560 / 560 Output Total 1100 / 1100 400 / 400 Balance -1100 / -1100 -280 / -280 560 / 560 Weight 164 lb 159 lb 8 oz Narrative: She is sitting up in bed eating breakfast. She is alert and oriented. Lungs are clear to auscultation. Heart is regular. Abdomen is soft and nondistended with no tenderness. Extremities show continued improvement in her swelling at 1-2+ pedal and pretibial edema. Assessment and Plan (1) Hypertensive heart disease Status: Acute Category: Medical Code(s): I11.9 - Hypertensive heart disease without heart failure (2) Diastolic dysfunction with acute on chronic heart failure Status: Acute Category: Medical Code(s): I50.33 - Acute on chronic diastolic (congestive) heart failure (3) Biatrial enlargement Status: Acute Category: Medical Code(s): I51.7 - Cardiomegaly (4) Tachycardia Status: Acute Category: Medical Code(s): R00.0 - Tachycardia, unspecified (5) Hypertension Status: Acute Category: Medical Code(s): I10 - Essential (primary) hypertension (6) Chronic back pain Status: Acute Category: Medical Code(s): M54.9 - Dorsalgia, unspecified; G89.29 - Other chronic pain (7) Lower extremity edema Status: Acute Category: Medical Code(s): R60.0 - Localized edema - Assessment and plan all Dx Assessment and Plan for all problems:: Condition is improved during the admission with decrease in her peripheral edema, decrease in her leg pain, and now able to ambulate on her own. She is tolerating the change in medications. She is stable for discharge and will arrange for home health services with detention, PT and OT. She will follow-up in office for recheck in 2 weeks.
--- NOTE | 2021-06-11 09:05 | PC.NURSE ---
Pt assisted up to BSC to void with assist x2. Pt now back in bed, warm blanket given, call mancilla in reach. Denies any needs at this time.
--- NOTE | 2021-06-11 12:34 | PC.NURSE ---
Assisted pt up to void (x2 staff) per BSC. Large amt of yellow urine with strong odor noted. Pt now back to bed and finishing lunch. Fresh ice water provided.
[2021-06-11 13:00] VITALS: BP 151/69; PULSE 68; RESP 16; TEMP 36.7; O2SAT 94
--- NOTE | 2021-06-11 14:35 | PC.NURSE ---
Pt assisted up to BSC to void and have bm. Transferred well with 2 person assist and/ or standby. Convinced pt while up to take a shower. Given shower by myself and my tech (Dunlap). Pt tolerated it well. During shower pt's family member arrived to take pt home once finished.
--- NOTE | 2021-06-18 15:16 | HMH.DCSUM ---
General - General Admission date:: 06/08/21 <Dominick Steve - 07/06/21 19:00> 06/08/21 <Leslee Wilks - 06/18/21 15:25> Discharge date: 06/11/21 <Leslee Wilks - 06/18/21 15:25> HPI HPI: Ms. Rahman is an 85-year-old white female with history of HTN, Dysrhythmia, Arthritis, and Lymphedema who presented to the [facility] ED after waking up yesterday with increased lower extremity edema and difficulty walking. Her daughter is present at the bedside and provides some of the history as the patient is a somewhat poor historian. She does relate a history of lower extremity edema over the last 3 years and has been seen in the lymphedema clinic with treatment intermittently over that time with improvement in symptoms. However, 2 weeks ago her lower extremities began to swell to the point of being quite painful and limiting her activities. She denies any chest pain, pressure, or tightness and has not noticed any significant increase in shortness of breath. She does not seem to be very active at home other than basic ADLs. Both she and her daughter confirm that she has been taking only amlodipine and MVI at home as she ran out of Lasix a few months ago and did not have the prescription refilled. Upon arrival, she was found to have lower extremity edema and elevated BNP without evidence of CHF on chest x-ray. Her EKG showed sinus tachycardia at 100bpm with some sinus arrhythmia noted. She received a dose of IV Lasix and was admitted for further evaluation and cardiology consultation. At the time of this writing, lower extremity Dopplers have been performed and echocardiogram was finished earlier this morning with preliminary results showing generous right heart size and biatrial enlargement. LV function is estimated to be normal. Out of concern for pulmonary embolus, she has been started on lovenox and cardiology plans for CTA of the chest. <Leslee Wilks - 06/18/21 15:25> Hospital Course Hospital Course: The patient's CTA showed no evidence of PE. It did show cardiomegaly with enlargement of the right left atrium. Her echo showed an elevated right-sided heart pressure and biatrial enlargement. It was felt she had diastolic congestive heart failure. Cardiology the saw the patient and added Lasix and discussed with her stopping her Norvasc in favor of an arm or beta-kimberli therapy. The increased swelling and knee pain seemed to be the limiting factor in her mobility. She has severe arthritis of the knees and is followed by Dr. Lima. It was felt she might benefit from physical therapy. The patient did begin feeling better. Her swelling improved. A PT evaluation was ordered and they felt she was appropriate to return home once medically stable. By 06/11/21, she was resting better and she denied any pain in her legs. She was able to ambulate 25 feet with physical therapy using a walker. She tolerated the medication changes and was stable to be discharged home and will have home health services with jail, PT, and OT. She will follow-up in the office in 2 weeks. <Leslee Wilks - 06/18/21 15:25> Objective Vital signs: Temp Pulse Resp BP Pulse Ox 98.0 F 68 16 151/69 H 94 L 06/11/21 13:00 06/11/21 13:00 06/11/21 13:00 06/11/21 13:00 06/11/21 13:00 <EviDominick Job - 07/06/21 19:00> Temp Pulse Resp BP Pulse Ox 98.0 F 68 16 151/69 H 94 L 06/11/21 13:00 06/11/21 13:00 06/11/21 13:00 06/11/21 13:00 06/11/21 13:00 <Leslee Wilks - 06/18/21 15:25> Narrative: She is sitting up in bed eating breakfast. She is alert and oriented. Lungs are clear to auscultation. Heart is regular. Abdomen is soft and nondistended with no tenderness. Extremities show continued improvement in her swelling at 1-2+ pedal and pretibial edema. <Leslee Wilks - 06/18/21 15:25> DS: Diagnosis - Discharge Diagnosis (1) Hypertensive heart disease Status: Acute (2) Diastolic dysfun
== END 2021-06-11 16:00 | disposition home health service (06) ==
LOC: ER 20:33 → OB 23:00
PROVIDERS: Physician Assistant; Admitting Provider Family Medicine; Emergency Provider Emergency Medicine; PCP Family Medicine; Visit Provider Family Medicine
DX: I11.0 Hypertensive heart disease with heart failure (principal); R00.0 Tachycardia, unspecified; I50.33 Acute on chronic diastolic (congestive) heart failure; I10 Essential (primary) hypertension; M54.9 Dorsalgia, unspecified; G89.29 Other chronic pain; M19.90 Unspecified osteoarthritis, unspecified site; M17.0 Bilateral primary osteoarthritis of knee
CPT/HCPCS: 36415; 71045; 71275; 72170; 80048; 80053; 81001; 83735; 83880; 84145; 84436; 84443; 84484; 84550; 85025; 85651; 86140; 93005; 93306; 93970; 97162; 99284; G0378; J2405; Q9967; U0003

== ENCOUNTER 2022-07-09 19:45 | Observation (INO) | payer MEDICARE, OTHER, SELFPAY ==
[2022-07-09] VITALS (7 sets, daily range): BP systolic 119–165; BP diastolic 46–68; PULSE 93–115; RESP 18–22; TEMP 36.7; O2SAT 95–98; BMI 29.9
--- NOTE | 2022-07-09 20:13 | XR_ITS ---
PROCEDURE INFORMATION: Exam: XR Left Ankle Exam date and time: 07/09/2022 8:37 PM Age: 86 years old Clinical indication: Injury or trauma; Fall; Blunt trauma; Ankle; Left TECHNIQUE: Imaging protocol: Radiologic exam of the Left ankle. Views: 3 or more views. COMPARISON: No relevant prior studies available. FINDINGS: Limitations: Osteopenia, limiting evaluation for fracture. Bones/joints: No displaced fracture. No dislocation. Plantar calcaneal enthesophyte. No significant joint effusion. Soft tissues: Soft tissue swelling. IMPRESSION: No displaced fracture. If pain persists, suggest splinting and follow up radiographs in 7-10 days.
--- NOTE | 2022-07-09 20:13 | XR_ITS ---
PROCEDURE INFORMATION: Exam: XR Right Knee Exam date and time: 07/09/2022 8:21 PM Age: 86 years old Clinical indication: Injury or trauma; Fall; Blunt trauma; Knee; Right TECHNIQUE: Imaging protocol: Radiologic exam of the Right knee. Views: 3 views. COMPARISON: CA VENOUS DOPPLER LE BI 06/09/2021 7:32 AM FINDINGS: Bones/joints: No acute fracture. There is osteopenia of visualized bones. Moderate tricompartmental osteoarthritis of the right knee. Soft tissues: There is mild soft tissue swelling noted about the right knee. IMPRESSION: 1. No acute fracture. 2. Osteopenia of visualized bones. Moderate tricompartmental osteoarthritis. 3. There is mild soft tissue swelling noted about the right knee.
--- NOTE | 2022-07-09 20:13 | XR_ITS ---
PROCEDURE INFORMATION: Exam: XR Right Femur Exam date and time: 07/09/2022 8:25 PM Age: 86 years old Clinical indication: Injury or trauma; Fall; Blunt trauma; Thigh or upper leg; Right TECHNIQUE: Imaging protocol: Radiologic exam of the Right femur. Views: 2 views. COMPARISON: CR XR KNEE RT 3V 07/09/2022 8:21 PM FINDINGS: Bones/joints: No acute fracture. There is osteopenia of visualized bones. Degenerative changes of the lower lumbar spine, right knee, right sacroiliac joint, and symphysis pubis noted. Soft tissues: Dystrophic calcification along the course of the superficial femoral artery. No overlying soft tissue swelling. IMPRESSION: 1. No evidence of acute fracture. 2. Osteopenia of visualized bones. Degenerative changes of the lower lumbar spine, right knee, right sacroiliac joint, and symphysis pubis. 3. No overlying soft tissue swelling.
--- NOTE | 2022-07-09 20:13 | CT_ITS ---
PROCEDURE INFORMATION: Exam: CT Cervical Spine Without Contrast Exam date and time: 07/09/2022 8:53 PM Age: 86 years old Clinical indication: Injury or trauma; Fall TECHNIQUE: Imaging protocol: Computed tomography of the cervical spine without contrast. Radiation optimization: All CT scans at this facility use at least one of these dose optimization techniques: automated exposure control; mA and/or kV adjustment per patient size (includes targeted exams where dose is matched to clinical indication); or iterative reconstruction. COMPARISON: No relevant prior studies available. FINDINGS: Bones/joints: No acute fracture. Degenerative anterolisthesis of upper thoracic spine. Facet osteoarthrosis within cervical spine. Facet osteoarthrosis within upper thoracic spine. Discs/Spinal canal/Neural foramina: Mild to moderate degenerative disc disease within mid to lower cervical spine. Mild degenerative disc disease within mid cervical spine. Neuroforaminal narrowing within mid and lower cervical spine. Lungs: Unremarkable as visualized. Thyroid: Few nodules, up to 2.1 cm. Vasculature: Atherosclerotic disease of visualized arteries. Soft tissues: Unremarkable. IMPRESSION: 1. No fracture. 2. Thyroid nodule. Recommend ultrasound. COMMENTS: Consistent with the [employer]'s Incidental Findings Committee white paper (J Am Joy Radiol 2015): In patients aged 35 years and older with an incidental thyroid nodule equal to or greater than 1.[address], MRI or extrathyroidal US, further evaluation with dedicated thyroid US is recommended for patients with normal life expectancy and without comorbidities. For smaller nodules without suspicious features, no further evaluation or follow up is recommended.
--- NOTE | 2022-07-09 20:13 | XR_ITS ---
PROCEDURE INFORMATION: Exam: XR Left Tibia and Fibula Exam date and time: 07/09/2022 8:35 PM Age: 86 years old Clinical indication: Injury or trauma; Fall; Blunt trauma; Lower leg; Left TECHNIQUE: Imaging protocol: Radiologic exam of the Left tibia and fibula. Views: 2 views. COMPARISON: No relevant prior studies available. FINDINGS: Limitations: Osteopenia, limiting evaluation for fracture. Bones/joints: No displaced fracture. No dislocation. Soft tissues: Soft tissue swelling. IMPRESSION: No displaced fracture.
--- NOTE | 2022-07-09 20:13 | XR_ITS ---
PROCEDURE INFORMATION: Exam: XR Chest Exam date and time: 07/09/2022 8:21 PM Age: 86 years old Clinical indication: Injury or trauma; Fall; Blunt trauma (contusions or hematomas) TECHNIQUE: Imaging protocol: Radiologic exam of the chest. Views: 1 view. COMPARISON: CR XR CHEST PORTABLE 06/08/2021 8:33 PM FINDINGS: Lungs: Unremarkable. No consolidation. Pleural spaces: Unremarkable. No pleural effusion. No pneumothorax. Heart/Mediastinum: Heart size is normal. Atheromatous calcification of the thoracic aorta. There are calcified lymph nodes within the subcarinal region. Bones/joints: Osteopenia of visualized bones. Degenerative changes of the shoulders and thoracic spine. IMPRESSION: No acute intrathoracic disease.
--- NOTE | 2022-07-09 20:13 | XR_ITS ---
PROCEDURE INFORMATION: Exam: XR Pelvis Exam date and time: 07/09/2022 8:19 PM Age: 86 years old Clinical indication: Injury or trauma; Fall; Blunt trauma (contusions or hematomas); Bilateral; Pelvic region TECHNIQUE: Imaging protocol: Radiologic exam of the pelvis. Views: 1 or 2 view. COMPARISON: CR XR PELVIS 1-2V 06/08/2021 8:31 PM FINDINGS: Bones/joints: No acute fracture. There is osteopenia of visualized bones. Degenerative changes of the lower lumbar spine, sacroiliac joints, and symphysis pubis. Left total hip arthroplasty is noted. Soft tissues: There is an injection granuloma present within the left buttock. Soft tissues are otherwise unremarkable. IMPRESSION: 1. No acute fracture. 2. Osteopenia of visualized bones. Degenerative changes within the lumbar spine, sacroiliac joints, and symphysis pubis. 3. No overlying soft tissue swelling.
--- NOTE | 2022-07-09 20:13 | XR_ITS ---
PROCEDURE INFORMATION: Exam: XR Left Femur Exam date and time: 07/09/2022 8:33 PM Age: 86 years old Clinical indication: Injury or trauma; Fall; Blunt trauma; Thigh or upper leg; Left TECHNIQUE: Imaging protocol: Radiologic exam of the Left femur. Views: 2 views. COMPARISON: CR XR PELVIS 1-2V 07/09/2022 8:19 PM FINDINGS: Bones/joints: No acute fracture. Left total hip arthroplasty is noted. There is osteopenia of visualized bones. Tricompartmental osteoarthritis of the left knee, greatest within the left lateral femorotibial joint. Soft tissues: No significant overlying soft tissue swelling. IMPRESSION: 1. No acute fracture. 2. Osteopenia of visualized bones. Left total hip arthroplasty has been performed. Degenerative changes of the left knee. 3. No overlying soft tissue swelling.
--- NOTE | 2022-07-09 20:13 | XR_ITS ---
PROCEDURE INFORMATION: Exam: XR Right Ankle Exam date and time: 07/09/2022 8:24 PM Age: 86 years old Clinical indication: Injury or trauma; Fall; Blunt trauma; Ankle; Right TECHNIQUE: Imaging protocol: Radiologic exam of the Right ankle. Views: 3 or more views. COMPARISON: CR XR TIBIA FIBULA RT 2V 07/09/2022 8:23 PM FINDINGS: Bones/joints: No acute fracture. The right tibiotalar joint space appears well maintained. There is osteopenia of visualized bones. Spurring along posterior and inferior aspects of the right calcaneus. Soft tissues: Diffuse soft tissue swelling of the mid and distal right calf and right ankle. IMPRESSION: 1. No acute fracture. There is osteopenia of visualized bones. 2. Soft tissue swelling of the mid and distal right calf and right ankle.
--- NOTE | 2022-07-09 20:13 | CT_ITS ---
PROCEDURE INFORMATION: Exam: CT Head Without Contrast Exam date and time: 07/09/2022 8:49 PM Age: 86 years old Clinical indication: Injury or trauma; Fall TECHNIQUE: Imaging protocol: Computed tomography of the head without contrast. Radiation optimization: All CT scans at this facility use at least one of these dose optimization techniques: automated exposure control; mA and/or kV adjustment per patient size (includes targeted exams where dose is matched to clinical indication); or iterative reconstruction. COMPARISON: No relevant prior studies available. FINDINGS: Brain: Mild atrophy. No intracranial hemorrhage. No mass. Few scattered foci of decreased attenuation within periventricular/subcortical white matter. No edema. Cerebral ventricles: No hydrocephalus. Paranasal sinuses: No acute sinusitis. Mastoid air cells: No significant effusion. Orbital cavities: Unremarkable as visualized. Bones/joints: No acute fracture. Soft tissues: Unremarkable. Vasculature: Atherosclerotic disease of intracranial arteries. IMPRESSION: 1. No intracranial hemorrhage. 2. Probable chronic microvascular ischemic changes.
--- NOTE | 2022-07-09 20:13 | XR_ITS ---
PROCEDURE INFORMATION: Exam: XR Left Knee Exam date and time: 07/09/2022 8:34 PM Age: 86 years old Clinical indication: Injury or trauma; Fall; Blunt trauma; Knee; Left TECHNIQUE: Imaging protocol: Radiologic exam of the Left knee. Views: 3 views. COMPARISON: CR XR FEMUR LT 2V 07/09/2022 8:33 PM FINDINGS: Bones/joints: Osteopenia of visualized bones. Tricompartmental osteoarthritis, greatest within the lateral femorotibial joint. No acute fracture. Soft tissues: Atheromatous calcification along portion of the popliteal artery. No overlying soft tissue swelling. IMPRESSION: 1. No acute fracture. 2. Tricompartmental osteoarthritis, greatest within the lateral femorotibial joint. 3. There is osteopenia of visualized bones. 4. No overlying soft tissue swelling.
--- NOTE | 2022-07-09 20:13 | XR_ITS ---
PROCEDURE INFORMATION: Exam: XR Right Tibia and Fibula Exam date and time: 07/09/2022 8:23 PM Age: 86 years old Clinical indication: Injury or trauma; Fall; Blunt trauma; Lower leg; Right TECHNIQUE: Imaging protocol: Radiologic exam of the Right tibia and fibula. Views: 2 views. COMPARISON: CR XR KNEE RT 3V 07/09/2022 8:21 PM FINDINGS: Bones/joints: No acute fracture. There is osteopenia of visualized bones. Degenerative changes of the right knee noted. Soft tissues: Diffuse soft tissue swelling of the right calf. Dystrophic calcification of trifurcation arteries of the right calf. IMPRESSION: 1. No acute fracture. Osteopenia of visualized bones. Degenerative changes of the right knee. 2. There is diffuse soft tissue swelling of the right calf.
[2022-07-09 20:34] LABS: Basophils % 0.1 % (0.1-2.0); Eosinophils % 0.1 % (0.1-12.0); Hematocrit 36.5 % (37.0-47.0); Hemoglobin 12.2 g/dL (12.2-16.2); Lymphocytes # 1.3 K/mm3 (0.7-4.5); Mean Corpuscular HGB Conc 33.3 g/dL (31.8-35.4); Mean Corpuscular Hemoglobin 29.1 pg (27.0-31.2); Mean Corpuscular Volume 87.2 fl (81-99); Mean Platelet Volume 6.8 fl (7.4-10.4); Monocytes # 0.4 K/mm3 (0.1-1.0); Monocytes % 4.5 % (1.7-9.3); Neutrophils # 7.2 K/mm3 (1.8-7.8); Neutrophils % 80.3 % (37.0-80.0); Platelet Count 326 K/mm3 (142-424); Red Blood Count 4.19 M/mm3 (4.20-5.40); Red Cell Distribution Width 14.6 % (11.5-17.5)
[2022-07-09 20:39] LABS: Alanine Aminotransferase 15 U/L (12-78); Albumin Level 3.5 g/dl (3.5-5.0); Albumin/Globulin Ratio 1.1 (1.1-1.8); Alkaline Phosphatase 123 U/L (38-126); Anion Gap 8.1 mEq/L (5-15); Aspartate Amino Transferase 36 U/L (14-36); Bilirubin,Total 0.4 mg/dl (0.2-1.3); Blood Urea Nitrogen 13 mg/dl (7-17); Calcium 9.1 mg/dl (8.4-10.2); Carbon Dioxide 31 mmol/L (22.0-30.0); Chloride 103 mmol/L (98-107); Creatinine Clearance Estimated 51 mL/min (50-200); Estimated Glomerular Filt Rate 52 ml/min (>60); GFR (African American) 63 ML/MIN (>60); Globulin 3.1 g/dL (1.3-3.2); Glucose 135 mg/dl (74-100); Potassium 4.1 mmoL/L (3.5-5.1); Sodium 138 mmol/L (136-145); Total Protein,Serum 6.6 g/dl (6.3-8.2)
[2022-07-09 20:40] LABS: Lactic Acid 1.3 mmol/L (0.7-2.1)
[2022-07-09 20:48] LABS: Creatine Kinase 98 U/L (30-135)
[2022-07-09 20:58] LABS: Procalcitonin 0.069 ng/mL (0.0-2.0)
--- NOTE | 2022-07-09 21:05 | PC.NURSE ---
Patient assisted back from ct scan. Pt is resting in bed now, given a warm blanket.
--- NOTE | 2022-07-09 21:07 | HMH.EDFALL ---
ED Disposition Clinical Impression: Abnormality of gait and mobility, SIRS (systemic inflammatory response syndrome), Memory changes Fall Qualifiers: Encounter type: initial encounter Qualified Code(s): W19.XXXA - Unspecified fall, initial encounter Cellulitis Qualifiers: Site of cellulitis: extremity Site of cellulitis of extremity: lower extremity Laterality: unspecified laterality Qualified Code(s): L03.119 - Cellulitis of unspecified part of limb Disposition: Admitted as Observation Condition on Discharge: Fair Referrals: Dominick Steve MD [Primary Care Provider] - - Critical Care Critical Care Time: No Attestation: On 07/09/22, the high probability of a clinically significant, sudden or life threatening deterioration of the following system(s) required my full and direct attention, intervention and personal management. The time I documented below is in addition to time spent performing reported procedures but includes the following listed in this critical care notation. Medical Decision Making - Medical Records Medical records reviewed: Yes: I reviewed the patient's medical records. - Saul Inquiry Pt receiving controlled substance: No Vital Signs: 07/09/22 20:00 07/09/22 20:04 07/09/22 21:04 Temperature 98.0 F Temperature Source Oral Pulse Rate 93 H 115 H Pulse Rate [Apical] 102 H Respiratory Rate 18 Blood Pressure 142/51 H 159/61 H Blood Pressure [Right Arm] 152/60 H Blood Pressure Mean Blood Pressure Mean [Right Arm] 90 Blood Pressure Source [Right Arm] Automatic Cuff Blood Pressure Position [Right Arm] Sitting 02 Sat by Pulse Oximetry 98 96 95 Oxygen Delivery Method Room Air Room Air Room Air 07/09/22 21:30 07/09/22 22:01 07/09/22 22:31 Temperature Temperature Source Pulse Rate 99 H 102 H 103 H Pulse Rate [Apical] Respiratory Rate 22 Blood Pressure 123/46 L 127/58 L 165/68 H Blood Pressure [Right Arm] Blood Pressure Mean Blood Pressure Mean [Right Arm] Blood Pressure Source [Right Arm] Blood Pressure Position [Right Arm] 02 Sat by Pulse Oximetry 96 96 96 Oxygen Delivery Method Room Air Room Air 07/09/22 23:00 Temperature Temperature Source Pulse Rate 98 H Pulse Rate [Apical] Respiratory Rate 21 Blood Pressure 119/65 Blood Pressure [Right Arm] Blood Pressure Mean 94 Blood Pressure Mean [Right Arm] Blood Pressure Source [Right Arm] Blood Pressure Position [Right Arm] 02 Sat by Pulse Oximetry 96 Oxygen Delivery Method Room Air - Lab Data Lab results reviewed: Yes: I reviewed the patient's lab results. Lab Results 07/09/22 19:58: ESR 27 07/09/22 19:58: C-Reactive Protein 9.0 H, Procalcitonin 0.069 07/09/22 19:58: WBC 9.0, RBC 4.19 L, Hgb 12.2, Hct 36.5 L, MCV 87.2, MCH 29.1, MCHC 33.3, RDW 14.6, Plt Count 326, MPV 6.8 L, Neut % (Auto) 80.3 H, Lymph % (Auto) 15.0, Dale % (Auto) 4.5, Eos % (Auto) 0.1, Baso % (Auto) 0.1, Neut # (Auto) 7.2, Lymph # (Auto) 1.3, Dale # (Auto) 0.4, Eos # (Auto) 0.0, Baso # (Auto) 0.0 07/09/22 19:58: Sodium 138, Potassium 4.1, Chloride 103, Carbon Dioxide 31 H, Anion Gap 8.1, BUN 13, Creatinine 1.00, Estimated Creat Clear 51, Estimated GFR 52 L, Est GFR ( Amer) 63, Glucose 135 H, Calcium 9.1, Total Bilirubin 0.4, AST 36, ALT 15, Alkaline Phosphatase 123, Total Protein 6.6, Albumin 3.5, Globulin 3.1, Albumin/Globulin Ratio 1.1 07/09/22 19:58: Lactate 1.3 07/09/22 19:58: Total Creatine Kinase 98 07/09/22 20:03: SARS-CoV-2 (PCR) Not detected, Influenza A Untype (PCR) Not detected, Influenza Type B (PCR) Not detected 07/09/22 22:36: Urine Color Yellow, Urine Appearance Clear, Urine pH 6.0, Ur Specific [place] 1.020, Urine Protein Negative, Urine Glucose (UA) Negative, Urine Ketones Negative, Urine Blood Negative, Urine Nitrate Negative, Urine Bilirubin Negative, Urine Urobilinogen 0.2, Ur Leukocyte Esterase Negative, Amorphous Sediment 1+ Result diagrams: 07/09/22 19:58 07/09/22 1
[2022-07-09 21:51] LABS: Erythrocyte Sedimentation Rate 27 mm/hr (0-30)
[2022-07-09 22:15] LABS: Coronavirus 19, PCR Not Detected (NotDetected); Influenza A, PCR Not Detected (NotDetected); Influenza B, PCR Not Detected (NotDetected)
--- NOTE | 2022-07-09 22:24 | PC.NURSE ---
Rounded on pt. Pt voiced no needs or complaints at this time.
[2022-07-09 23:11] LABS: Microscopic, Urine URINE MICROSCOPIC (MICROSCOPIC)
[2022-07-09 23:14] LABS: Appearance,Urine CLEAR (Clear); Bilirubin,Urine Negative (Negative); Blood, Urine Negative (Negative); Color,Urine YELLOW (Yellow); Glucose,Urine (UA) Negative (Negative); Ketones,Urine Negative (Negative); Leukocyte Esterase,Urine Negative (Negative); Nitrate,Urine Negative (Negative); Protein,Urine Negative (Negative); Urobilinogen,Urine 0.2 EU/dl (0.2)
[2022-07-09 23:18] LABS: Amorphous Sediment,Urine 1+ /lpf
--- NOTE | 2022-07-09 23:25 | PC.NURSE ---
Dr. Pizano pageandrea
--- NOTE | 2022-07-09 23:29 | PC.NURSE ---
speaking to Dr. Pizano
--- NOTE | 2022-07-09 23:31 | PC.NURSE ---
Notified house of pt admission and need for bed assignment.
[2022-07-10] VITALS (8 sets, daily range): BP systolic 120–149; BP diastolic 53–79; PULSE 79–98; RESP 14–20; TEMP 36.4–37; O2SAT 92–98; BMI 27.1
--- NOTE | 2022-07-10 00:11 | PC.NURSE ---
Pt updated on expected wait times. Pt and family agreeable. No needs voiced.
--- NOTE | 2022-07-10 01:24 | PC.NURSE ---
PT ARRIVED TO FLOOR AT 1:OO VIA STRETCHER
--- NOTE | 2022-07-10 05:00 | PC.NURSE ---
pt admitted this shift, pt is confused to place, time, pulling at tubes, pt was noted to have calvin tube around neck, pt called out stating she was on [address], daughter in law concerned about pt at home with who is also confused, bilateral lower extremity lymphedema, f/c to bsd with clear yellow urine, no other issues noted at this time.
[2022-07-10 06:17] LABS: Basophils % 0.4 % (0.1-2.0); Eosinophils # 0.1 K/mm3 (0.0-0.4); Monocytes # 0.4 K/mm3 (0.1-1.0)
[2022-07-10 06:22] LABS: Hematocrit 34.5 % (37.0-47.0); Hemoglobin 10.9 g/dL (12.2-16.2); Lymphocytes # 2.6 K/mm3 (0.7-4.5); Mean Corpuscular HGB Conc 31.7 g/dL (31.8-35.4); Mean Corpuscular Hemoglobin 29.3 pg (27.0-31.2); Mean Corpuscular Volume 92.5 fl (81-99); Mean Platelet Volume 7.6 fl (7.4-10.4); Monocytes % 5.3 % (1.7-9.3); Neutrophils # 3.7 K/mm3 (1.8-7.8); Neutrophils % 54.3 % (37.0-80.0); Platelet Count 319 K/mm3 (142-424); Red Blood Count 3.73 M/mm3 (4.20-5.40); Red Cell Distribution Width 15.5 % (11.5-17.5); White Blood Count 6.7 K/mm3 (4.8-10.8)
[2022-07-10 06:26] LABS: Anion Gap 6.4 mEq/L (5-15); Blood Urea Nitrogen 13 mg/dl (7-17); Calcium 8.6 mg/dl (8.4-10.2); Carbon Dioxide 29 mmol/L (22.0-30.0); Chloride 104 mmol/L (98-107); Creatinine Clearance Estimated 46 mL/min (50-200); Estimated Glomerular Filt Rate 59 ml/min (>60); GFR (African American) 72 ML/MIN (>60); Glucose 102 mg/dl (74-100); Magnesium 1.9 mg/dl (1.6-2.3); Potassium 3.4 mmoL/L (3.5-5.1); Sodium 136 mmol/L (136-145)
--- NOTE | 2022-07-10 07:18 | P.CONPHA_ITS ---
[facility] Pharmacy VTE Monitoring - Patient Demographics Admission date: 07/09/22 Report Date: 07/10/22 Time: 07:18 Allergies/Adverse Reactions: Patient Allergies Penicillins [PENICILLINS] Allergy (Intermediate, Verified 01/28/20 20:08) I-RASH Sulfa (Sulfonamide Antibiotics) [SULFA (SULFONAMIDE ANTIBIOTICS)] Allergy (Unknown, Verified 01/28/20 20:08) Height: 1.65 m Weight: 73.992 kg Patient Problems: Current Active Problems Fall (Acute) Abnormality of gait and mobility (Acute) Cellulitis (Acute) SIRS (systemic inflammatory response syndrome) (Acute) Memory changes (Acute) - VTE Risk Labs: VTE Related Lab Results Hgb 10.9 g/dL (12.2-16.2) L D 07/10/22 05:50 Hct 34.5 % (37.0-47.0) L 07/10/22 05:50 Plt Count 319 K/mm3 (142-424) 07/10/22 05:50 BUN 13 mg/dl (7-17) 07/10/22 05:50 Creatinine 0.90 mg/dl (0.52-1.04) 07/10/22 05:50 Estimated Creat Clear 46 mL/min (50-200) 07/10/22 05:50 Was VTE Risk Assessment Performed: Yes VTE Score: 5 VTE Risk Level: Low Risk - Prophylaxis VTE Prophylaxis Ordered?: Yes Types of VTE Prophylaxis: TEDS Knee High Location of Applied Device: Bilateral Lower Extremeties
--- NOTE | 2022-07-10 07:18 | HMH.PHAINT ---
MEDICATION RECONCILIATION COMPLETED ON PATIENT USING EXTERNAL FILL HISTORY FROM PHARMACY. -RYLEE LEMOS, ARELISD
--- NOTE | 2022-07-10 08:15 | US_ITS ---
FINAL REPORT CLINICAL HISTORY: thyroid nodule seen on recent CT scan FINDINGS: THYROID ULTRASOUND Sonographic images of the thyroid was obtained. The isthmus measures 2 mm. The right lobe of the thyroid measures 3.7 x 2.0 x 1.4 cm. There is a mid right pole nodule measures 6 x 4 x 2 mm which is cystic, TI-RADS 1. There is also a right lower pole nodule measuring 10 x 8 x 7 mm which is mostly solid, isoechoic TI-RADS 3. The left lobe of the thyroid measures 3.8 x 1.8 x 1.4 cm. There is a 15 x 13 x 10 mm nodule which is cystic and solid, TI-RADS 2. There is also a 6 x 5 x 4 mm nodule which is cystic, TI-RADS 1. There are several other smaller nodules. IMPRESSION: Several thyroid nodules bilaterally. No follow-up is recommended. Reviewed, Interpreted and Dictated by Lexa Chin III, MD Transcribed by Mary Kay Waite Authenticated and [facility]
--- NOTE | 2022-07-10 08:17 | CA_ITS ---
FINAL REPORT TECHNIQUE: Color Doppler, duplex Doppler and compression sonography of the right lower extremity venous system was performed. CLINICAL HISTORY: CELLULITS RT LOWER EXTREMITY,EDEMA FINDINGS: Note this exam is very limited and images of the popliteal vein was not obtained secondary to patient not moving right leg. There is no evidence of deep venous thrombosis from the level of the groin to the calf. The veins are patent and compressible. IMPRESSION: Very limited study as noted above. No evidence of deep venous thrombosis right lower extremity. Reviewed, Interpreted and Dictated by Lexa Chin III, MD Transcribed by Mary Kay Waite Authenticated and [facility]
[2022-07-10 08:53] LABS: T4 (Thyroxine) 10.3 ug/dl (5.53-11.0)
--- NOTE | 2022-07-10 08:55 | HMH.HP ---
*Admission Date: 07/09/22 <Jen Corrales 07/10/22 09:13> *Chief complaint: Fall; leg pain <Jen Corrales 07/10/22 09:13> *History of present illness: Ms. Rahman is an 86-year-old female with a history of hypertension, arthritis, dysrhythmia, and lymphedema who presented to [facility] emergency room after found on floor in her home by the daughter. The daughter states she went to check on her as was her usual routine and found her sitting in the floor. Patient does not recall falling and does not remember events prior to being on the floor. She does remember her daughter coming in to the home. Due to her weakness family was unable to assist her from the floor. EMS was called to bring her to the hospital. With evaluation in the emergency room she was found to have a cellulitis of bilateral lower extremities and was started on Rocephin. Laboratory data showed a normal white blood cell count at 9000 and is 6700 this morning. Hemoglobin is 12.2 with hematocrit of 36.5 and this a.m. is 10.9 and 34.5. Blood chemistries show sodium of 138 potassium of 4.1. C-reactive protein is elevated at 9. Urinalysis was negative. Cervical CT showed no fracture but did reveal a thyroid nodule. Chest x-ray showed no acute disease. CT of the head showed no intracranial hemorrhage and probable chronic microvascular ischemic changes. X-rays of the right and left tibia/fibula, pelvis, bilateral knees, bilateral femurs, bilateral ankles, and cervical spine CT showed no acute fractures. This a.m. patient ate very little breakfast. She continues to have pain in both legs notably the right leg. Both knees are uncomfortable. <AntoniJen 07/10/22 14:45> [facility] History Medical History: Reports:: Arrhythmia, Congestive Heart Failure, Hypertension Denies:: Cancer, Diabetes Mellitus Type 1, Diabetes Mellitus Type 2, MRSA <Jen Corrales 07/10/22 09:13> *Have you ever received a pneumonia vaccine?: No <Jen Corrales 07/10/22 09:13> *Have you received a flu vaccine this season?: No <Jen Corrales 07/10/22 09:13> Other Medical History: Reports: Arthritis <Jen Corrales 07/10/22 09:13> Laterality Cases: Left: Arthroscopy Hip, Bilateral: Other <Jen Corrales 07/10/22 09:13> Other Surgeries: Yes: Other <Jen Corrales 07/10/22 09:13> Amputation: No <Jen Corrales 07/10/22 09:13> Fractures: No <Jen Corrales 07/10/22 09:13> - *Social History Last grade of school completed: 7th or 8th <Jen Corrales 07/10/22 09:13> Smoking Status: Never smoker <Jen Corrales 07/10/22 09:13> Alcohol Intake: never <Jen Corrales 07/10/22 09:13> Substance Use Type: denies use <Kaitlin Corraleshy 07/10/22 09:13> *Occupational Status:: retired <AntoniJen 07/10/22 09:13> Housing: house <Jen Corrales 07/10/22 09:13> Household Members: spouse <Jen Corrales 07/10/22 09:13> *Travel in the last 8 weeks: None <Jen Corrales 07/10/22 09:13> Family Hx:: Heart Attack <AntoniJen 07/10/22 09:13> Review of Systems - Constitutional Reports lack of energy, Reports weight loss, Denies fever(s) <CorralesJen 07/10/22 09:13> - ENT Denies ear pain, Denies sore throat <CorralesJen 07/10/22 09:13> - *Cardiovascular Reports leg swelling, Denies chest pain, Denies shortness of breath <CorralesJen 07/10/22 09:13> - *Respiratory Denies chest congestion, Denies cough, Denies shortness of breath <CorralesJen 07/10/22 09:13> - *Gastrointestinal Reports nausea, Reports vomiting, Denies abdominal pain, Denies loose stools <CorralesJen 07/10/22 09:13> - *Genitourinary Denies difficulty urinating <CorralesJen 07/10/22 09:13> - *Musculoskeletal Reports abnormal walking (Uses a rolling walker), Reports joint swelling (Bilateral knees), Reports muscle weakness <Jen Corrales - 07/10/22 09:13> - *Neurologic Reports confusion, Reports unsteadiness, Reports memory loss, Denies abnormal speech, Venkatesh
[2022-07-10 09:07] LABS: Thyroid Stimulating Hormone 2.08 uIU/mL (0.465-4.68)
--- NOTE | 2022-07-10 11:14 | HMH.OTEV ---
OT Inpatient Evaluation Rehab OT IP Evaluation Start: 07/10/22 08:47 Freq: ONCE Status: Complete Protocol: Document 07/10/22 11:05 EMA (Rec: 07/10/22 11:13 EMA [id number]) Rehab OT IP Assessment Subjective History Ms. Rahman is an 86-year-old female with a history of hypertension, arthritis, dysrhythmia, and lymphedema who presented to [facility] emergency room after found on floor in her home by the daughter. The daughter states she went to check on her as was her usual routine and found her sitting in the floor. Patient does not recall falling and does not remember events prior to being on the floor. She does remember her daughter coming in to the home. Due to her weakness EMS was called to bring her to the hospital. With evaluation in the emergency room she was found to have a cellulitis of bilateral lower extremities and was started on Rocephin. Laboratory data showed a normal white blood cell count at 9000 and is 8 6700 this morning. Hemoglobin is 12.2 with hematocrit of 36.5 and this a.m. is 10.9 and 34.5. Blood chemistries show sodium of 138 potassium of 4.1. C- reactive protein is elevated at 9. Urinalysis was negative .Cervical CT showed no fracture but did reveal a thyroid nodule.Chest x-ray showed no acute disease. CT of the head showed no intracranial hemorrhage and probable chronic microvascular ischemic changes. X-rays of the right and left tibia/ fibula, pelvis, bilateral knees, bilateral femurs, bilateral ankles, and cervical
--- NOTE | 2022-07-10 11:22 | HMH.PTEV ---
Physical Therapy Evaluation Rehab PT IP Evaluation Start: 07/10/22 08:47 Freq: ONCE Status: Active Protocol: Document 07/10/22 10:56 GEORGESLUCIUS (Rec: 07/10/22 11:22 SWEETIE [id number]) Subjective/History History History This is the inital PT IP evaluation for Ratna Rahman, a 86 y/o female. Pt was taken to ER after being found on the floor by her daughter - ER evaluation revealed BLE cellulitis and sepsis. Pt has h/o arrhythmia, congestive heart failure, and hypertension. Written by Sue Jacob, SPT Subjective Subjective Pt very confused and poor historian. Pt unable to initially recall her last name , 's first name, or where she was. Pt c/o BLE pain . Rehab PT IP Eval Objective Appearance Patient Behavior Wandering,Confused Patient Orientation Name,Birthday Difficulty following instructions mild Speech Pattern Clear,Rambling Ambulation Patient Able to Ambulate Yes Ambulation Observation IP General Gait Pattern Observation Wide Based Gait,Shuffling Step Ambulation Distance (feet) 3 Ambulation Assistive Device None Ambulation Ability Minimal x 2 (25% assist), Moderate x 1 (50% assist) Balance Ability to Arise Unable Sitting Balance Steady, safe Standing Balance Steady, wide stance Dynamic Sitting Balance Ability Fair Dynamic Standing Balance Ability Poor Transfers Bed Transfer Ability Minimal x 2 (25% assist), Moderate x 1 (50% assist) Chair Transfer Ability Supervision/Stand by,Contact Guard/Hand Hold Sit to Stand Bed Transfer Ability Minimal x 2 (25% assist), Moderate x 1 (50% assist) Rehab PT IP prob,goals,plan Problems Date of Evaluation: 07/10/22 PT IP Problems Bed Mobility,Transfers,Gait, Balance,Self care,Safety Rehab Potential Rehab Potential Fair Equipment Needs Assistive Devices Rolling / Wheeled Walker Plan PT Intervention Plan Bed Mobility,Transfers,Gait, Balance,Self care,Safety, Therapeutic Exercise PT Plan Frequency BID Duration LOS Di
--- NOTE | 2022-07-10 12:08 | SW/DCPLANNER ---
Addendum entered by Virginia Bueno 07/11/22 12:35: [facility] not [facility] able [facility] accept today. [facility] has stated that she can accept this patient. Patient will require a COVID swab. Addendum entered by Virginia Livermore 07/11/22 10:32: I am still waiting to hear back from Lovely [facility]/ [facility] regarding bed availability for this patient. Family has stated that if [facility] can not accept this patient they are fine with discharging to [place]. Patient will discharge to [facility] or [facility] today. Addendum entered by Virginia Livermore 07/10/22 14:56: [facility]/ [facility] stated that pending a discharge tomorrow she can accept this patient. I will follow up with Lov[facility] and patient's family tomorrow morning. [facility] has also stated that she can accept this patient. Original Note: I attempted to speak with this patient regarding plans once medically stable for discharge. PT evaluated this patient and recommended SNF level of care at time of discharge. Patient was unable to answer a majority of my questions appropriately. I contacted patient's daughter in law (Kelsie) regarding discharge plans. Kelsie stated that patient resides at home with her and she has been noticing more confusion from patient. Kelsie stated that she thinks patient could benefit from SNF level of care if she is agreeable. Kelsie stated that she was coming to [facility] to see patient this evening and would speak with patient about SNF level of care. Kelsie also suggested that Dr Steve recommend this discharge plan to patient and she may be more agreeable. Kelsie is agreeable for me to fax patient information to [facility] this afternoon. I will continue to follow up with patient/family, [facility]ender and . Discharge date is unknown at this time.
--- NOTE | 2022-07-10 15:15 | PC.NURSE ---
rounded on patient. patient is noted to have moments of confusion. seems to be in good spirits. patient granddaughter at bedside. Did attempt to get an iv on patient and was unsuccessful with the first stick so ultrasound iv was done. 20 gauge in r upper arm. patient also requesting to get up and get in the shower. tech in room to do this after iv stick. patient has no complaints at this time. no concerns noted. encouraged them to ring out with any needs questions or concerns.
--- NOTE | 2022-07-10 15:42 | PC.NURSE ---
PT IS SITTING UP IN THE CHAIR. ALERT TO SELF ONLY. PT WAS NOT CONFUSED THIS MORNING SHE IS NOW. THIS AFTERNOON PT HAS STATED SHE WANTS TO GO HOME B/C SHE NEEDS TO BE AT HOME TAKING CARE OF HER MOTHER AND FATHER. PT STATED SHE THINKS WE ARE HOLDING HER HOSTAGE AND DOES NOT UNDERSTAND WHY SHE CANNOT GO HOME. PHYSICAL THERAPY STATED SHE DID WELL WITH GETTING UP OOB HOWEVER SHE WAS VERY CONFUSED. LUNG SOUNDS CLEAR. ABDOMEN SOFT/NON TENDER WITH ACTIVE BOWEL SOUNDS. EATING AND DRINKING FAIR. SWELLING/REDNESS NOTED TO BLE. WILL CONTINUE TO MONITOR.
--- NOTE | 2022-07-11 03:37 | PC.NURSE ---
Pt is alert to self, name and birthday. Pt knows she is in [place], [place], but not exactly where. Pt has ambulated from chair to bed with 2x assist. Pt has received IV antibiotic this shift. Pt has been resting through the night. BLE 2+ pitting edema with redness noted. Feet elevated off bed with pillows. Lung sounds clear. Abdomen soft and non-tender, bowel sounds active. Mckeon in place and draining. Call light in reach and working, bed alarm on and functioning.
[2022-07-11 03:46] VITALS: BP 136/69; PULSE 87; RESP 17; TEMP 36.6; O2SAT 97
[2022-07-11 05:00] VITALS: BMI 22.2
[2022-07-11 08:00] VITALS: BP 129/66; PULSE 92; RESP 16; TEMP 36.9; O2SAT 95; O2SAT 98
--- NOTE | 2022-07-11 08:31 | HMH.ACPN2 ---
<Jen Corrales - Last Filed: 07/11/22 08:37> Internal Medicine - PN: Subj *Date: 07/11/22 *Time: 08:37 Interval history: Patient states she is doing better. She denies pain. She feels her breathing is fine. She ate most of her breakfast. She did work with physical therapy and was able to walk. Exam Vital signs and Labs for Last 24 Hours: Temp Pulse Resp BP Pulse Ox 97.8 F 87 17 136/69 97 07/11/22 03:46 07/11/22 03:46 07/11/22 03:46 07/11/22 03:46 07/11/22 03:46 Laboratory Results - last 24 hr 07/10/22 05:50: TSH 2.08, Thyroxine (T4) 10.3 I & O for Last 24 hours: Intake & Output 07/08/22 07/09/22 07/10/22 07/11/22 11:59 11:59 11:59 11:59 Intake Total 377 / 377 949 / 949 Output Total 0 / 0 1200 / 1200 Balance 377 / 377 -251 / -251 Weight 163 lb 2.273 oz 133 lb 9 oz - Constitutional no acute distress - *Routine Respiratory Exam Present: CTA bilaterally (Anteriorly and posteriorly) - *Routine Cardiovascular Exam Present: irregular rhythm - *Routine Abdominal Exam Present: soft, normoactive bowel sounds. Absent: tenderness, distended - *Routine Extremities Exam Present: edema. Absent: calf tenderness - *Routine Skin Exam Present: erythema (Improved bilateral lower extremity erythema.) - *Routine Neurological Exam Present: alert Assessment and Plan (1) Altered mental status Status: Acute Category: Medical Code(s): R41.82 - Altered mental status, unspecified (2) Fall Status: Acute Qualifiers: Encounter type: initial encounter Qualified Code(s): W19.XXXA - Unspecified fall, initial encounter Category: Medical Code(s): W19.XXXA - Unspecified fall, initial encounter (3) Right knee pain Status: Acute Category: Medical Code(s): M25.561 - Pain in right knee (4) Cellulitis Status: Acute Qualifiers: Site of cellulitis: extremity Site of cellulitis of extremity: lower extremity Laterality: unspecified laterality Qualified Code(s): L03.119 - Cellulitis of unspecified part of limb Category: Medical Code(s): L03.90 - Cellulitis, unspecified (5) Lymphedema Status: Chronic Category: Medical Code(s): I89.0 - Lymphedema, not elsewhere classified (6) Abnormality of gait and mobility Status: Acute Category: Medical Code(s): R26.9 - Unspecified abnormalities of gait and mobility (7) SIRS (systemic inflammatory response syndrome) Status: Acute Category: Medical Code(s): R65.10 - Systemic inflammatory response syndrome (SIRS) of non-infectious origin without acute organ dysfunction (8) Hypertension Status: Chronic Category: Medical Code(s): I10 - Essential (primary) hypertension (9) Osteoarthritis Status: Chronic Category: Medical Code(s): M19.90 - Unspecified osteoarthritis, unspecified site (10) Thyroid nodule Status: Acute Category: Medical Code(s): E04.1 - Nontoxic single thyroid nodule - Assessment and plan all Dx Assessment and Plan for all problems:: Care management has secured a bed either at [facility] or [facility]. She will be discharged home on antibiotic and for ongoing rehab with PT and OT. <Dominick Steve - Last Filed: 07/11/22 18:26> Internal Medicine - PN: Subj *Date: 07/11/22 *Time: 18:25 Exam Vital signs and Labs for Last 24 Hours: Temp Pulse Resp BP Pulse Ox 98.0 F 99 H 16 144/72 H 93 L 07/11/22 12:52 07/11/22 12:52 07/11/22 12:52 07/11/22 12:52 07/11/22 12:52 Laboratory Results - last 24 hr 07/11/22 13:03: SARS-CoV-2 (PCR) Not detected, Influenza A Untype (PCR) Not detected, Influenza Type B (PCR) Not detected I & O for Last 24 hours: Intake & Output 07/09/22 07/10/22 07/11/22 07/12/22 11:59 11:59 11:59 11:59 Intake Total 377 / 377 1309 / 1309 240 / 240 Output Total 0 / 0 1525 / 1525 Balance 377 / 377 -216 / -216 240 / 240 Weight 163 lb 2.273 oz 133 lb 9 oz Assessment and Plan (1) Altered men
--- NOTE | 2022-07-11 09:09 | HMH.DCSUM ---
General - General Admission date:: 07/10/22 <Dominick Steve - 07/12/22 21:54> 07/10/22 <AntoniJen - 07/11/22 09:26> Discharge date: 07/11/22 <CorralesKaitlinJen - 07/11/22 09:26> HPI HPI: Ms. Rahman is an 86-year-old female with a history of hypertension, arthritis, dysrhythmia, and lymphedema who presented to [facility] emergency room after she was found on the floor in her home by Jen her [id number]. Jen stated she went to check on her as was her usual routine and found her sitting in the floor. Patient did not recall falling and did not remember events prior to being on the floor. She did remember her daughter coming in to the home. Due to her weakness family was unable to assist her from the floor. EMS was called to bring her to the hospital. With evaluation in the emergency room she was found to have a cellulitis of bilateral lower extremities and was started on Rocephin. Laboratory data showed a normal white blood cell count at 9000 and with repeat was 6700 the following morning. Hemoglobin was 12.2 with hematocrit of 36.5 with repeat the following a.m. 10.9 and 34.5. Blood chemistries showed sodium of 138 potassium of 4.1. C-reactive protein was elevated at 9. Urinalysis was negative. Cervical CT showed no fracture but did reveal a thyroid nodule. Chest x-ray showed no acute disease. CT of the head showed no intracranial hemorrhage and probable chronic microvascular ischemic changes. X-rays of the right and left tibia/fibula, pelvis, bilateral knees, bilateral femurs, bilateral ankles, and cervical spine CT showed no acute fractures. AM after admission patient ate very little breakfast. She continued to have pain in both legs notably the right leg. Both knees were uncomfortable. <AntoniJen - 07/11/22 09:26> Hospital Course Hospital Course: With evaluation in the emergency room all x-rays were negative for fractures. She was started on Rocephin for the cellulitis. Diuretics were held. She was seen by PT and OT and was able to walk in the room with a walker and assistance. Care management was consulted for placement for rehab. AM of 07/11/2022 patient was feeling better. She was able to move her legs without discomfort. She did eat well for breakfast. She stated her breathing was fine and denied shortness of breath. On this date she was felt to be stable to go to a rehab center for ongoing PT and OT. She will be continued on a cephalosporin for the cellulitis. Other medicines as per reconciliation sheet. Follow-up will be in the senior living. <Jen Corrales - 07/11/22 09:26> Objective Vital signs: Temp Pulse Resp BP Pulse Ox 98.0 F 99 H 16 144/72 H 93 L 07/11/22 12:52 07/11/22 12:52 07/11/22 12:52 07/11/22 12:52 07/11/22 12:52 <Dominick Steve - 07/12/22 21:54> Temp Pulse Resp BP Pulse Ox 97.8 F 87 17 136/69 97 07/11/22 03:46 07/11/22 03:46 07/11/22 03:46 07/11/22 03:46 07/11/22 03:46 <Jen Corrales - 07/11/22 09:26> Narrative: Exam Vital signs and Labs for Last 24 Hours: Temp Pulse Resp BP Pulse Ox 97.8 F 87 17 136/69 97 07/11/22 03:46 07/11/22 03:46 07/11/22 03:46 07/11/22 03:46 07/11/22 03:46 Laboratory Results - last 24 hr 07/10/22 05:50: TSH 2.08, Thyroxine (T4) 10.3 I & O for Last 24 hours: Intake & Output 07/08/22 07/09/22 07/10/22 07/11/22 11:59 11:59 11:59 11:59 Intake Total 377 / 377 949 / 949 Output Total 0 / 0 1200 / 1200 Balance 377 / 377 -251 / -251 Weight 163 lb 2.273 oz 133 lb 9 oz - Constitutional no acute distress - *Routine Respiratory Exam Present: CTA bilaterally (Anteriorly and posteriorly) - *Routine Cardiovascular Exam Present: irregular rhythm - *Routine Abdominal Exam Present: soft, normoactive bowel sounds. Absent: tenderness, distended - *Routine Extremities Exam Present: edema. Absent: calf tenderness
--- NOTE | 2022-07-11 09:45 | PC.NURSE ---
Rounded on pt, cleaned and straightened room. Pt up to chair, no needs voiced at this time.
[2022-07-11 12:52] VITALS: BP 144/72; PULSE 99; RESP 16; TEMP 36.7; O2SAT 93
--- NOTE | 2022-07-11 13:02 | DIET.NUTRFU ---
Patient is less confused today and consumed 100% at lunch, even requesting more. She plans to discharge to [facility] today where meals are provided. No discharge needs at this time.
[2022-07-11 13:15] LABS: Coronavirus 19, PCR Not Detected (NotDetected); Influenza A, PCR Not Detected (NotDetected); Influenza B, PCR Not Detected (NotDetected)
--- NOTE | 2022-07-11 13:33 | PC.NURSE ---
notified md office that patient discharge meds hadn't been completed.
--- NOTE | 2022-08-08 09:54 | SW/DCPLANNER ---
I spoke with patient's family regarding LTC facilities. Patient's daughter (Kelsie) stated that patient was recently discharged from [facility] to [facility] level of care. Family was not happy with care at [facility] and after SNF stay brought patient back home. Kelsie stated that she is the primary caregiver and does not have a lot of assistance at home. Kelsie feels as if LTC may be the best option for patient and her . Home Health services with [facility] are set to start today. I explained different options of private sitters and LTC with patient. I did provide Kelsie w/ colette private sitter's list via email. I have also reached out to [facility]: Lovely will call and speak with Kelsie regarding LTC.
== END 2022-07-11 15:15 ==
LOC: ER 23:41 → 2ND 07-10 01:05
PROVIDERS: Admitting Provider Family Medicine; Emergency Provider Emergency Medicine; PCP Family Medicine; Visit Provider Family Medicine
DX: L03.115 Cellulitis of right lower limb; L03.116 Cellulitis of left lower limb; I10 Essential (primary) hypertension; I50.9 Heart failure, unspecified; I89.0 Lymphedema, not elsewhere classified; R26.9 Unspecified abnormalities of gait and mobility; Z79.899 Other long term (current) drug therapy; Z88.8 Allergy status to other drugs, medicaments and biological substances; Z20.822 Contact with and (suspected) exposure to COVID-19
CPT/HCPCS: G0378; 36415; 51702; 70450; 71045; 72125; 72170; 73552; 73562; 73590; 73610; 76536; 80048; 80053; 81001; 82550; 83605; 83735; 84145; 84436; 84443; 85025; 85651; 86140; 93971; 97110; 97162; 97165; 97530; 99285; C9803; J0696; U0003; U0005

== ENCOUNTER → 2022-08-11 13:20 | Outpatient (CLI) | payer MEDICARE, OTHER, SELFPAY | PROVIDERS: PCP Family Medicine; Visit Provider Family Medicine | DX: L89.613 Pressure ulcer of right heel, stage 3 (principal); B95.8 Unspecified staphylococcus as the cause of diseases classified elsewhere | CPT/HCPCS: 87070; 87077; 87186; 87205 ==

== ENCOUNTER → 2023-05-02 10:22 | Outpatient (CLI) | payer MEDICARE, OTHER, SELFPAY ==
[2023-05-02 11:34] LABS: Basophils % 0.3 % (0.1-2.0); Eosinophils # 0.1 K/mm3 (0.0-0.4); Eosinophils % 2.1 % (0.1-12.0); Hematocrit 41.5 % (37.0-47.0); Lymphocytes # 2.7 K/mm3 (0.7-4.5); Lymphocytes % 47.1 % (10-50); Mean Corpuscular HGB Conc 31.4 g/dL (31.8-35.4); Mean Corpuscular Hemoglobin 28.4 pg (27.0-31.2); Mean Corpuscular Volume 90.4 fl (81-99); Mean Platelet Volume 7.7 fl (7.4-10.4); Monocytes # 0.3 K/mm3 (0.1-1.0); Monocytes % 4.3 % (1.7-9.3); Neutrophils # 2.7 K/mm3 (1.8-7.8); Neutrophils % 46.3 % (37.0-80.0); Platelet Count 350 K/mm3 (142-424); Red Blood Count 4.59 M/mm3 (4.20-5.40); Red Cell Distribution Width 13.2 % (11.5-17.5); White Blood Count 5.8 K/mm3 (4.8-10.8)
== END ==
PROVIDERS: PCP Family Medicine; Visit Provider Family Medicine
DX: I10 Essential (primary) hypertension (principal)
CPT/HCPCS: 36415; 85025

== ENCOUNTER 2023-05-17 10:00 | Outpatient (RCR) | payer MEDICARE, OTHER, SELFPAY ==
--- NOTE | 2023-05-02 11:24 | HMH.PTOPWND ---
Rehab Outpt Wound Evaluation Rehab OP Wound Evaluation Start: 05/02/23 10:53 Freq: Status: Active Protocol: Document 05/02/23 11:17 PHORNE (Rec: 05/02/23 11:24 PHORNE [id number]) E-signed By Ismael Newman, PT Subjective/History History History This is the initial PT evaluation for Ratna Rahman, 87 yowf who presents with pressure injury to R buttock x 2-3 wks with insidious onset of symptoms. She is accompnaied by her daughter who assists with her history. She reports tenderness in the area with palpation or sitting . She also has issues with urinary incontinence. She has difficulty with dressings in the area due to fragile skin, as well. Subjective Subjective Currently no pain at rest, 0/ 10. 2/4 TTP noted in the nanda- wound skine. MOD erythema noted to B medial buttocks and sacral region. Suggestive of MASD tthat has progressed to a pressure injury. Pts daughter reports they have been using cushions for her to sit on at home to help with pressure relief. Pt and daughter instructed to continue pressure relief or even improve it with gel cushion for seating. Continues hydrocolloid as tolerated, but if skin damage from ahesive is noted, a more appropriate dressing would be aquaphor/ petroleum jelly topical with non-adherent pad secondary dressing. Wound Eval Wound Right Medial Buttock Wound Type Pressure Ulcer Is This a Chronic Wound No Wound Staging Stage II Query Text:Stage I - Unbroken, red skin, no blanching. Stage II - Skin broken, superficial skin loss involving epidermis alone or also dermis. Partial loss of skin layers. Stage III - Pressure area involves epidermis, dermis and subcutaneous tissue, full thickness skin loss.
== END 2023-05-17 11:00 | disposition home or self-care (01) ==
LOC: PT 10:00
PROVIDERS: PCP Family Medicine; Visit Provider Family Medicine
DX: L89.151 Pressure ulcer of sacral region, stage 1 (principal)
CPT/HCPCS: 97162

== ENCOUNTER 2023-06-28 16:11 | Emergency (ER) | payer MEDICARE, OTHER, SELFPAY ==
[2023-06-28 16:17] VITALS: BP 149/67; PULSE 92; O2SAT 98
[2023-06-28 16:20] VITALS: BP 149/67; PULSE 93; RESP 18; TEMP 36.7; O2SAT 96; BMI 23.3
--- NOTE | 2023-06-28 16:28 | XR_ITS ---
PROCEDURE INFORMATION: Exam: XR Left Wrist Exam date and time: 06/28/2023 4:58 PM Age: 87 years old Clinical indication: Injury or trauma; Fall; Blunt trauma (contusions or hematomas); Wrist; Left; Additional info: Fall lue pain TECHNIQUE: Imaging protocol: Radiologic exam of the left wrist. Views: 1 or 2 views. COMPARISON: WRISTLTWO CT wrist LT wo con 01/11/2018 3:18 PM FINDINGS: Bones/joints: There is no acute fracture or dislocation. Alignment is preserved. There are degenerative changes at the triscaphe joint. Soft tissues: Normal. IMPRESSION: No acute fracture or dislocation.
--- NOTE | 2023-06-28 16:28 | XR_ITS ---
PROCEDURE INFORMATION: Exam: XR Left Elbow Exam date and time: 06/28/2023 4:58 PM Age: 87 years old Clinical indication: Injury or trauma; Fall; Blunt trauma (contusions or hematomas); Elbow; Left; Additional info: Fall lue pain TECHNIQUE: Imaging protocol: Radiologic exam of the left elbow. Views: 3 or more views. COMPARISON: WRISTLTWO CT wrist LT wo con 01/11/2018 3:18 PM FINDINGS: Bones/joints: Alignment is normal. The radial head and neck are normal in contour. The coronoid and olecranon processes are intact. The distal humerus appears intact. No fracture is visualized. No destructive osseous lesions are seen. No elbow effusion is seen. Soft tissues: Normal. IMPRESSION: No acute radiographic abnormality of the elbow.
--- NOTE | 2023-06-28 16:28 | XR_ITS ---
PROCEDURE INFORMATION: Exam: XR Left Forearm Exam date and time: 06/28/2023 4:58 PM Age: 87 years old Clinical indication: Injury or trauma; Fall; Blunt trauma (contusions or hematomas); Arm, lower; Left; Additional info: Fall lue pain TECHNIQUE: Imaging protocol: Radiologic exam of the left forearm. Views: 2 views. COMPARISON: WRISTLTWO CT wrist LT wo con 01/11/2018 3:18 PM FINDINGS: Bones/joints: No acute fracture or dislocation. No destructive osseous lesions are seen. The bones are osteopenic. Soft tissues: Normal. IMPRESSION: No acute fracture or dislocation.
--- NOTE | 2023-06-28 16:28 | XR_ITS ---
PROCEDURE INFORMATION: Exam: XR Left Humerus Exam date and time: 06/28/2023 4:58 PM Age: 87 years old Clinical indication: Injury or trauma; Fall; Blunt trauma (contusions or hematomas); Arm, upper; Left; Additional info: Fall lue pain TECHNIQUE: Imaging protocol: Radiologic exam of the left humerus. Views: 2 or more views. COMPARISON: CT CERVICAL SPINE WO CON 07/09/2022 8:53 PM FINDINGS: Bones/joints: No acute fracture or dislocation. No destructive osseous lesions identified. Soft tissues: Normal. Other findings: No radiopaque foreign identified. IMPRESSION: No acute fracture or dislocation.
--- NOTE | 2023-06-28 16:28 | CT_ITS ---
PROCEDURE INFORMATION: Exam: CT Cervical Spine Without Contrast Exam date and time: 06/28/2023 4:59 PM Age: 87 years old Clinical indication: Injury or trauma; Fall; Blunt trauma TECHNIQUE: Imaging protocol: Computed tomography of the cervical spine without contrast. Radiation optimization: All CT scans at this facility use at least one of these dose optimization techniques: automated exposure control; mA and/or kV adjustment per patient size (includes targeted exams where dose is matched to clinical indication); or iterative reconstruction. REPORTING DATA: Count of CT and Cardiac NM exams in prior 12 months: This patient has received 2 known CTs and 0 known cardiac nuclear medicine studies in the 12 months prior to the current study. COMPARISON: CT CERVICAL SPINE WO CON 07/09/2022 8:53 PM FINDINGS: Bones/joints: No anterior wedging deformity. No acute lucent fracture lines visualized. There is mild anterolisthesis at C7-T1. Mild spondylitic changes are noted at the C4-C5 through C6-C7 levels. No severe central canal neural foraminal stenosis demonstrated by CT. Lungs: There is a 3 mm nodular density in the posterior right lung apex, with somewhat spiculated appearance. This is partially visualized on the 07/09/2022 CT and appears stable. Soft tissues: Unremarkable. IMPRESSION: No acute cervical spinal injury demonstrated by CT.
--- NOTE | 2023-06-28 16:28 | XR_ITS ---
PROCEDURE INFORMATION: Exam: XR Chest Exam date and time: 06/28/2023 4:58 PM Age: 87 years old Clinical indication: Injury or trauma; Fall; Blunt trauma (contusions or hematomas) TECHNIQUE: Imaging protocol: Radiologic exam of the chest. Views: 1 view. COMPARISON: CR XR CHEST AP 07/09/2022 8:21 PM FINDINGS: Lungs: No alveolar consolidation. Linear atelectasis or parenchymal scarring at the left lung base. Pleural spaces: No pleural effusion. No pneumothorax. Heart/Mediastinum: Mild cardiomegaly. Bones/joints: No acute displaced fracture is seen. IMPRESSION: 1. No acute injury identified. 2. Linear atelectasis or parenchymal scarring at the left lung base. 3. Mild cardiomegaly.
--- NOTE | 2023-06-28 16:28 | CT_ITS ---
PROCEDURE INFORMATION: Exam: CT Head Without Contrast Exam date and time: 06/28/2023 4:57 PM Age: 87 years old Clinical indication: Injury or trauma; Fall; Blunt trauma (contusions or hematomas) TECHNIQUE: Imaging protocol: Computed tomography of the head without contrast. Radiation optimization: All CT scans at this facility use at least one of these dose optimization techniques: automated exposure control; mA and/or kV adjustment per patient size (includes targeted exams where dose is matched to clinical indication); or iterative reconstruction. REPORTING DATA: Count of CT and Cardiac NM exams in prior 12 months: This patient has received 2 known CTs and 0 known cardiac nuclear medicine studies in the 12 months prior to the current study. COMPARISON: CT HEAD/BRAIN WO CON 07/09/2022 8:49 PM FINDINGS: Brain: There are global involutional changes of the brain which are in keeping with the patient's age. Periventricular hypodensities are nonspecific but most likely reflect chronic microvascular ischemic disease. Benign basal ganglia calcifications are noted. Old lacunar infarct versus choroid fissure cyst the left. No acute intracranial hemorrhage, mass effect or midline shift.Kraus-white differentiation appears preserved. Cerebral ventricles: No ventriculomegaly. Paranasal sinuses: The visualized sinuses are unremarkable. Mastoid air cells: There is no mastoid effusion detected. Bones/joints: Unremarkable. No acute fracture. Soft tissues: Unremarkable. Vasculature: Atherosclerotic vascular disease is noted at the level of the skull base. Other findings: Motion artifact significantly degrades anatomic detail on this study. IMPRESSION: 1. No acute intracranial hemorrhage, mass effect or midline shift. 2. Involutional changes of the brain in keeping with the patient's age, with findings of chronic microvascular ischemic disease.
--- NOTE | 2023-06-28 16:28 | XR_ITS ---
PROCEDURE INFORMATION: Exam: XR Left Shoulder Exam date and time: 06/28/2023 4:58 PM Age: 87 years old Clinical indication: Injury or trauma; Fall; Blunt trauma (contusions or hematomas); Shoulder; Left; Additional info: Fall lue pain TECHNIQUE: Imaging protocol: Radiologic exam of the left shoulder. Views: 2 or more views. COMPARISON: CT CERVICAL SPINE WO CON 07/09/2022 8:53 PM FINDINGS: Bones/joints: No dislocation is seen. The acromioclavicular and glenohumeral joints are normally aligned. No fracture is visualized. No destructive osseous lesions are seen. There are no findings of calcific tendinitis. Soft tissues: Normal. IMPRESSION: No acute radiographic abnormality of the shoulder.
[2023-06-28 16:30] VITALS: BP 129/63; PULSE 80; O2SAT 97
--- NOTE | 2023-06-28 16:36 | HMH.EDGENADL ---
Discharge Plan Disposition Patient Disposition: Home, Self-Care Condition: Good Prescriptions Prescriptions: No Action quetiapine 25 mg tablet 25 mg PO Patient Comments: TAKE 1 TABLET BY MOUTH AT BEDTIME donepezil 5 mg tablet 5 mg PO Patient Comments: TAKE 1 TABLET BY MOUTH ONCE DAILY AT BEDTIME spironolactone 25 mg tablet 25 mg PO DAILY acetaminophen 325 MG tablet 650 mg PO Q4HP PRN (Reason: Fever Or Mild Pain) 0RF furosemide 40 MG tablet 40 mg PO DAILY Qty: 30 0RF Referrals Follow up/Referrals: Dominick Steve MD [Primary Care Provider] - See instructions Steven Moon JR, MD [Physician] - See instructions (Patient presented with fall, negative XR, concern for shoulder strain causing pain. ) Clinical Impressions Clinical Impression: Fall Instructions Patient Instructions: DI for Shoulder Pain Discharge ED Provider: Keysha Norris General Adult HPI General Chief complaint: Extremity Injury, Upper Stated complaint: AO [id number] injuredL Shoulder Time Seen by Provider: 06/28/23 16:17 Mode of Arrival: Wheelchair Source of Information: Patient and Relative Limitations: No Limitations Description of Symptoms (Recalled from ER Triage Doc. 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 Pt states she was attempting to ambulate in the house and lost her footing causing her to fall on the carpet on her left side. C/o left shoulder pain. +PMS, however ROM limited d/t pain. Denies blood thinners. History of Present Illness HPI narrative: Patient has a PMHx significant for dementia who presents to the ED with complaints of fall. Patient notes that she was ambulating in her house walking from the kitchen when she lost her footing causing her to fall directly onto the left side of her body. Patient notes that she landed directly on carpet. Patient did have head trauma, but negative LOC, negative blood thinners. Patient chief complaint includes left shoulder pain with decreased ability to move the left upper extremity and a mild headache. Related Data Home Medications Medication Instructions Recorded Confirmed donepezil 5 mg tablet 5 mg PO 12/05/22 06/26/23 quetiapine 25 mg tablet 25 mg PO 12/05/22 06/26/23 spironolactone 25 mg tablet 25 mg PO DAILY 03/13/23 06/26/23 Previous Rx's Medication Instructions Recorded acetaminophen 325 mg tablet 650 mg PO Q4HP PRN Fever Or Mild 07/11/22 Pain furosemide 40 mg tablet 40 mg PO DAILY #30 tabs 07/11/22 Allergies Allergy/AdvReac Type Severity Reaction Status Date / Time Penicillins [PENICILLINS] Allergy Intermediate I-RASH Verified 06/26/23 13:38 Sulfa (Sulfonamide Allergy Unknown Verified 06/26/23 13:38 Antibiotics) [SULFA (SULFONAMIDE ANTIBIOTICS)] [facility] Disclaimer: The information contained in this section may have been updated after the patient was seen, as this information can be updated by other users. Social History Smoking Status: Never smoker second hand exposure: No alcohol intake: never substance use type: denies use current occupational status: retired Travel in the last 8 weeks: None household members: spouse housing: house caffeine: Yes ROS Obtained: Yes All systems reviewed & no additional complaints except as documented Physical Exam General General appearance: alert and in no apparent distress Head Head exam: normocephalic, normal inspection and other (Patient has bruising across R forehead, mild abrasion to R cheek) Eye Eye exam: Present normal appearance, PERRL and EOMI; Absent scleral icterus or nystagmus ENT ENT exam: Present normal exam, mucous membranes moist and normal external ear exam Neck Neck exam: Present normal inspection, full ROM and trachea midline Chest Chest inspection: Present normal inspection and symmetric chest wall rise; Absent tenderness Respirator
[2023-06-28 17:30] VITALS: BP 135/70; PULSE 88; O2SAT 97
[2023-06-28 18:39] VITALS: BP 135/70; PULSE 88; RESP 18; TEMP 36.6; O2SAT 97
== END 2023-06-28 18:41 | disposition home or self-care (01) ==
PROVIDERS: Emergency Provider Emergency Medicine; PCP Family Medicine
DX: R51.9 Headache, unspecified (principal); M25.512 Pain in left shoulder; F03.90 Unspecified dementia, unspecified severity, without behavioral disturbance, psychotic disturbance, mood disturbance, and anxiety; W18.30XA Fall on same level, unspecified, initial encounter
CPT/HCPCS: 70450; 71045; 72125; 73030; 73060; 73080; 73090; 73100; 99285

== ENCOUNTER → 2023-07-11 21:28 | Outpatient (CLI) | payer MEDICARE, OTHER, SELFPAY | PROVIDERS: PCP Family Medicine; Visit Provider Nurse Practitioner Family | DX: S90.412A Abrasion, left great toe, initial encounter (principal); B96.89 Other specified bacterial agents as the cause of diseases classified elsewhere | CPT/HCPCS: 87070; 87077; 87205 ==

== ENCOUNTER 2023-08-02 11:00 | Outpatient (RCR) | payer MEDICARE, OTHER, SELFPAY ==
--- NOTE | 2023-07-02 14:50 | HMH.OTOPEV ---
OT Inpatient Evaluation Rehab OT Outpatient Eval Start: 07/02/23 14:41 Freq: Status: Active Protocol: Document 07/02/23 14:42 DORIS (Rec: 07/02/23 14:[id number] E-signed By Jovanny Aguilar, OT Outpatient Therapy Subjective History Subjective History Pt is an 87 year old female who reports to therapy for initial evaluation to left shoulder. Pt had a fall on 06/28/23 at home and landed on left shoulder. Pt reports decreased AROM and pain since her fall. Pt is accompanied by her son in law. Pt does have a history of dementia. Prior to her fall she was still living at home, but she had assistance from family . Pt claims she was able to completed ADLs independently and she could complete functional transfers with rollator. Pt does demonstrate with significant decline in AROM and strength at left shoulder. Pt will continue to be seen for OT services in order to address left UE deficits. Chief Complaint Pain,Weakness Symptom Type Ache,Throb,Sharp,Dull Symptoms Relieved By Nothing Symptoms Aggravated By Physical Activity,Lifting Prior Functional Limitations None Current Functional Limitations Reaching,Lifting,Housework, Dressing,Sleeping Symptom Description Constant but Variable Level of pain today (0-10) 8 Pain scale - at its best (0-10) 5 Pain scale - at its worst (0-10) 10 Shoulder/Elbow Eval Shoulder Objective Measurements Shoulder ROM Left Shoulder Abduction Passive Range of 60 degrees Motion (degrees) Shoulder Flexion Passive Range of Motion 70 degrees (degrees) Shoulder External Rotation Passive Range 20 degrees of Motion (degrees) Shoulder Internal Rotation Passive Range 20 degrees of Motion (degrees) Shoulder MMT Shoulder Abduction Strength Grade 2+ Poor+ Shoulder Flexion Strength Grade 2+ Poor+ Shoulder External Rotation Strength 2+ Poor+ Grade Shoulder Internal Rotation Strength 2+ Poor+ Grade Shoulder Strength Patient Testing Sitting Position
--- NOTE | 2023-07-31 08:44 | HMH.RHREAS ---
Rehab Reassessment Rehab OP Re-assessment Start: 07/02/23 14:00 Freq: Status: Active Protocol: Document 07/31/23 08:03 DORIS (Rec: 07/31/23 08:43 DORIS [id number]) E-signed By Jovanny Aguilar OT Rehab Re-assessment Subjective Subjective It is doing good I think. Objective Objective Notes Pt continues to be seen twice a week in order to address left shoulder deficits. Each session, pt engages in L shoulder AROM, AAROM, and strengthening exercises. Pt also receives PROM manual stretching to left shoulder in all planes. Modalities are provided in order to decrease pain/inflammation. Assessment Progress Assessment Progressing as Expected Assessment Notes Pt reports her pain and motion in left shoulder have improved. She explains she does not have pain very often. Therapist did not complete quick dash due to patient having dementia. Pt's daughter lives with her and provides assistance with all daily activities and has been for quite some time; even before injury. She is also dependent upon family for all IADLs. Pt's AROM has improved significantly since initial evaluation. Pt's AROM is almost equivalent to R shoulder. Flex: 105 degrees Abd: 100 degrees ER: 50 degrees IR: 50 degrees Patient goals met [address]-5 Goals Not Met See below Revised Goals LT-5 Plan Plan Continue with OT plan of care at this time. Frequency of Therapy 2x's a week Duration of therapy 4 more weeks Time and Billing Re-Eval Time 11 Re-Eval Billing Units 1 PHYSICIAN CERTIFICATION: I certify the specified therapy services for Ratna Rahman are required, authorized, and reviewed every 30 days.
== END 2023-08-02 11:05 | disposition home or self-care (01) ==
LOC: OT 11:00
PROVIDERS: PCP Family Medicine; Visit Provider Orthopaedic Surgery
DX: M25.512 Pain in left shoulder (principal)
CPT/HCPCS: 97010; 97110; 97140; 97164; 97166; 97530

== ENCOUNTER 2023-09-15 15:48 | Emergency (ER) | payer MEDICARE, OTHER, SELFPAY ==
[2023-09-15 16:00] VITALS: BP 148/70; PULSE 90; RESP 18; TEMP 36.6; O2SAT 98; BMI 21.9
--- NOTE | 2023-09-15 16:32 | EXP.UTC ---
Discharge Plan Disposition Patient Disposition: Home, Self-Care Condition: Good Prescriptions Prescriptions: No Action quetiapine 25 mg tablet 25 mg PO DAILY Patient Comments: TAKE 1 TABLET BY MOUTH AT BEDTIME donepezil 5 mg tablet 5 mg PO DAILY Patient Comments: TAKE 1 TABLET BY MOUTH ONCE DAILY AT BEDTIME spironolactone 25 mg tablet 25 mg PO DAILY acetaminophen 325 MG tablet 650 mg PO Q4HP PRN (Reason: Fever Or Mild Pain) 0RF furosemide 40 MG tablet 40 mg PO DAILY Qty: 30 0RF Referrals Follow up/Referrals: Dominick Steve MD [Primary Care Provider] - See instructions Activity Restrictions/Add. Instructions Additional Instructions/Restrictions: Use Muscle rub/Biofreeze as directed after ice/heat therapy. Clinical Impressions Clinical Impression: Chronic back pain Qualifiers: Back pain location: thoracic back pain Back pain laterality: bilateral Qualified Code(s): M54.6 - Pain in thoracic spine Instructions Patient Instructions: DI for Chronic Pain -- Adult, DI for Thoracic Back Pain Discharge ED Provider: Sonja Albarran [facility] General Stated complaint: back pain Mode of Arrival: Ambulatory Source of Information: Patient Limitations: No Limitations Time Seen by Provider: 09/15/23 16:31 Description of Symptoms (Recalled from Triage Doc. by RN): right shoulder pain this has been going on a week. Pt denies any accident. Pt denies pain radiating. HEENT Symptoms (Recalled from RN notes): No Resp Symptoms (Recalled from RN notes): No Skin Symptoms (Recalled from RN notes): No MS Symptoms (Recalled from RN notes): Yes Functional Status (Recalled from RN notes): n/a History of Present Illness Provider Complaint: Pt relates that she has had back pain on the right side of her mid thoracic. Family states that she reports pain at different site each time she is asked, but will repeatedly go back to having back pain. Family states that she has had some dry cough/throat clearing. She denies any recent falls or injury. Related Data Home Medications Medication Instructions Recorded Confirmed donepezil 5 mg tablet 5 mg PO DAILY 12/05/22 09/15/23 quetiapine 25 mg tablet 25 mg PO DAILY 12/05/22 09/15/23 spironolactone 25 mg tablet 25 mg PO DAILY 03/13/23 09/15/23 Previous Rx's Medication Instructions Recorded acetaminophen 325 mg tablet 650 mg PO Q4HP PRN Fever Or Mild 07/11/22 Pain furosemide 40 mg tablet 40 mg PO DAILY #30 tabs 07/11/22 Allergies Allergy/AdvReac Type Severity Reaction Status Date / Time Penicillins [PENICILLINS] Allergy Intermediate I-RASH Verified 09/15/23 16:09 Sulfa (Sulfonamide Allergy Unknown Verified 09/15/23 16:09 Antibiotics) [SULFA (SULFONAMIDE ANTIBIOTICS)] Worker's Comp Is this a Worker's Comp case?: No [facility] Disclaimer: The information contained in this section may have been updated after the patient was seen, as this information can be updated by other users. Medical History Abrasion, left great toe, initial encounter Hallux rigidus, left foot Wound abscess Social History Smoking Status: Never smoker second hand exposure: No alcohol intake: never substance use type: denies use current occupational status: retired Travel in the last 8 weeks: None household members: spouse housing: house caffeine: Yes ROS Obtained: Yes All systems reviewed & no additional complaints except as documented Constitutional Constitutional: Reports system reviewed and no additional complaints, except as documented Eyes Eyes: Reports system reviewed and no additional complaints, except as documented ENT Ears, Nose, Mouth, and Throat: Reports system reviewed and no additional complaints, except as documented Cardiovascular Cardiovascular: Reports system reviewed and no additional complaints,
--- NOTE | 2023-09-15 16:44 | XR_ITS ---
PROCEDURE INFORMATION: Exam: XR Chest Exam date and time: 09/15/2023 4:59 PM Age: 87 years old Clinical indication: Cough TECHNIQUE: Imaging protocol: Radiologic exam of the chest. Views: 2 views. COMPARISON: CT CERVICAL SPINE WO CON 07/09/2022 8:53 PM FINDINGS: Lungs: Hyperlucent changes are demonstrated. Increase in the lung volumes is demonstrated. Chronic regions of atelectasis or parenchymal scarring left lung base. Regions of parenchymal scarring at the lung apices accentuated by positioning. Pleural spaces: Unremarkable. No pleural effusion. No pneumothorax. Heart/Mediastinum: Calcified mediastinal and hilar lymph nodes. Diaphragm: There is flattening of the hemidiaphragms. Bones/joints: Unremarkable. IMPRESSION: 1. No evidence of acute cardiopulmonary disease. 2. Chronic obstructive pulmonary disease.
[2023-09-15 18:32] VITALS: BP 148/70; PULSE 90; RESP 90; TEMP 36.6; O2SAT 98
== END 2023-09-15 18:32 | disposition home or self-care (01) ==
PROVIDERS: Emergency Provider Nurse Practitioner Family; PCP Family Medicine
DX: M54.6 Pain in thoracic spine (principal)
CPT/HCPCS: 71046; 99203; 99212; G0463